=== PATIENT | female | born 1940 | race Caucasian/White ===

== ENCOUNTER 2016-12-29 16:35 | Inpatient (IN) ==
[2016-12-29] MEDS ORDERED: cloNIDine 0.1 MG TABLET PO STA ×2 (17:09→18:44)
[2016-12-29 17:23] LABS: Basophils # 0.1 10*3/uL (0.0-0.2); Basophils % 0.5 % (0.0-0.8); Eosinophils # 1.2 10*3/uL (0.0-0.87); Eosinophils % 9.6 % (0.00-10.9); Hemoglobin 10.3 GM/DL (12.0-16.0); Immature Granulocytes % 0.4 %; Immature Granulocytes Absolute 0.05 #; Lymphocytes # 1.9 10*3/uL (1.4-4.0); Lymphocytes % 14.7 % (21.3-54.2); Mean Corpuscular HGB Conc 32.2 GM/DL (32-36); Mean Corpuscular Hemoglobin 28 PG (27-34); Mean Corpuscular Volume 87.9 FL (87-102); Monocytes % 7.3 % (1.7-12.7); Neutrophils # 8.7 10*3/uL (1.4-7.4); Neutrophils % 67.5 % (38.7-73.9); Platelet Count 246 T/CUMM (130-400); Red Blood Count 3.64 MC/CUMM (3.8-5.5); Red Cell Distribution Width 16.1 % (9.3-17.3); White Blood Count 12.9 T/CUMM (4-12)
--- NOTE | 2016-12-29 17:24 | Emergency Department Note ---
IYaquelin Brittany, am scribing for, and in the presence of, Kristy Mclaughlin DO 17: 19. IArnoldo Debra, DO, personally performed the services described in this documentation, ascribed by Radha Jamison in my presence, and it is both accurate and complete 723 . Arrival - Arrival Chief Complaint: Syncope Stated Complaint: Syncope ED Nursing Triage Note: Pt c/o Syncope today while inside this afternoon, broke out into a sweat, dizziness, and fall. Pt has abrasions to her right fingers. Pt had diarrhea last night. Mode of Arrival: Stretcher Limitations: No Limitations Source: Patient Time Seen by Provider: 12/29/16 16:55 - History of Present Illness HPI Narrative: This is a 76 y/o white female,who presents to the ED by EMS S/P fall which happened this afternoon. She complains of back pain but notes this is chronic and nothing new. She reports she is did not "pass all the way out". She became dizzy and things started to became black around her. She reports she knew she was falling. She reports she did hit her head but has no GUTIÉRREZ. She reports she took her BP medications this morning. She reports her PCP is Dr. Alexander PABON. Pt has no other complaints/pain in the ED at this time. Pt has a PMHx of HTN, GERD , degenerative disk disease. Pt has had cardiac cath, abdominal surgery, cholecystectomy, EGD, neurologica surgery, hysterectomy, and genitourinary surgery. Pt has a family medical Hx of HTN and heart disease. Onset (ago): hour(s) (Happened this afternoon) Consistency: constant Severity: moderate Allergies/Adverse Reactions: Allergies Allergy/AdvReac Type Severity Reaction Status Date / Time amlodipine [From Norvasc] Allergy ITCHING Verified 02/04/15 11:38 hydrochlorothiazide Allergy ITCHING Verified 02/04/15 11:38 azithromycin AdvReac Difficulty Verified 02/04/15 11:38 [From Zithromax Z-Dilan] Breathing chlorpromazine AdvReac Anxiety Verified 02/04/15 11:38 [From Thorazine] codeine AdvReac Gastrointestinal Verified 02/04/15 11:38 Upset doxazosin [From Cardura] AdvReac Palpitation Verified 06/30/15 12:42 s ketorolac [From Toradol] AdvReac Anxiety Verified 02/04/15 11:38 Penicillins AdvReac Difficulty Verified 02/04/15 11:38 Breathing pregabalin [From Lyrica] AdvReac Unknown/Unable Verified 02/04/15 11:38 to obtain promethazine [From Phenergan] AdvReac Anxiety Verified 02/04/15 11:38 Sulfa (Sulfonamide AdvReac Difficulty Verified 02/04/15 11:38 Antibiotics) Breathing Home Medications: Home Medications Medication Instructions Recorded Confirmed Type Ergocalciferol (Vitamin D2) 50,000 unit PO Q7D 10/24/16 10/24/16 History [Vitamin D2] Labetalol Tab [Trandate Tab] 600 mg PO TID PRN 10/24/16 10/24/16 History Morphine ER Tab [Ms Contin] 30 mg PO TID 10/24/16 10/24/16 History Oxycodone HCl/Acetaminophen 1 tablet PO QID 10/24/16 10/24/16 History [Oxycodone-Acetaminophen 10-325] Potassium Chloride Cap/Tab [K Dur] 20 meq PO QPM 10/24/16 10/24/16 History Tramadol HCl [Tramadol Tab] 50 mg PO QID 10/24/16 10/24/16 History Valsartan [Diovan] 320 mg PO QAM 10/24/16 10/24/16 History Acetaminophen Tab [Tylenol Tab] 650 mg PO Q6H PRN #0 tablet 10/27/16 Rx Aspirin EC Tab 81 mg PO DAILY tablet 10/27/16 Rx Docusate Sodium Cap [Colace Cap] 100 mg PO BID capsule 10/27/16 Rx Levothyroxine Tab [Synthroid Tab] 25 mcg PO DAILY@0700 #30 tablet 10/27/16 Rx Nitroglycerin Sl Tab [Nitrostat] 0.4 mg SL Q5M PRN #10 tablet 10/27/16 Rx Ticagrelor [Brilinta] 90 mg PO BID #60 tablet 10/27/16 Rx Review of System - Review of System 12 point system: reviewed and no additional remarkable complaints except as stated - Review of System Review of Systems: Fall Cardiovascular: Absent: syncope (Near syncopal episode) Musculoskeletal: Present: back pain (Appears to be chronic ) Neurological: Present: vertigo (Dizziness). Absent: headache (Hit her head but has no GUTIÉRREZ, per pt) Medical,Surgical,& Family Hx - Medical History Cardio: History of: Hypertension Neurology: No history of: Seizures Gastrointestinal: History of: GERD Musculoskeletal: History of: Degenerative Disk Disease (Severe) - Surgical History Cardiac Surgeries: Sugical HX of: Cardiac Catheterization (Normal coronaries in 2004) Neurologic Surgeries: Surgical HX of: Neurologic Surgery (Cervical laminectomies 2. Lumbar laminectomy) Abdominal Surgeries: Surgical HX of: Abdominal Surgery (Status post partial gastrectomy in 1974), Cholecystectomy, EGD (Multiple EGDs with balloon dilatation of esophageal stricture) Reproductive Surgeries: Surgical HX of;: Genitourinary Surgery (Bladder tack), Hysterectomy (Partial) - Family History Family History: Reports;: Family Heart Disease (Father), Family Hypertension ( Mother) - Social History Smoking Status: Never smoker Exam Vital Signs: Vital Signs Temperature 97.6 F 12/29/16 16:39 Pulse Rate 62 12/29/16 16:39 Respiratory Rate 16 12/29/16 16:39 Blood Pressure 217/104 12/29/16 16:39 O2 Sat by Pulse Oximetry 99 12/29/16 16:37 - General General appearance: alert, in no apparent distress - Head Head exam: Present: atraumatic, normocephalic, normal inspection - Eye Eye exam: Present: other (Mildly dilated pupils). Absent: normal appearance, conjunctival injection, nystagmus, miosis, mydriasis - ENT ENT exam: Present: normal exam, normal oropharynx, mucous membranes moist, TM's normal bilaterally, normal external ear exam - Neck Neck exam: Present: normal inspection, full ROM, trachea midline. Absent: tenderness, meningismus, lymphadenopathy, thyromegaly - Chest Chest inspection: Present: normal inspection, symmetric chest wall rise. Absent : tenderness, rash, abscess - Respiratory Respiratory exam: Present: normal lung sounds bilaterally. Absent: accessory muscle use, prolonged expiratory phase, rales, respiratory distress, rhonchi, stridor, wheezes - Cardiovascular Cardiovascular exam: Present: normal rhythm, normal heart sounds. Absent: regular rate, murmur, rubs, gallop, clicks - Abdominal Exam Abdominal exam: Present: soft, normal bowel sounds. Absent: distention, tenderness, guarding, rebound, rigidity - Rectal Exam Rectal exam: Present: deferred - Extremities Exam Extremities exam: Present: normal capillary refill, other (Laceration noted to the right second toe, and Abrasion to the 3rd and 4th left fingers). Absent: tenderness, pedal edema, calf tenderness - Back Exam Back exam: Present: normal inspection, full ROM. Absent: tenderness, muscle spasm, rashes - Neurological Exam Neurological exam: Present: alert, oriented X3, CN II-XII intact. Absent: motor sensory deficit - Psychiatric Psychiatric exam: Present: normal affect, normal mood. Absent: depressed, agitated, anxious, flat affect, manic - Skin Skin exam: Present: warm, dry, intact, normal color. Absent: rash, cyanosis, diaphoresis, erythema, pallor, mottled Course Course Narrative: spoke with DR Sierra who will admit pt for DR Munoz Results - Labs CBC & BMP: 12/29/16 17:09 12/29/16 17:09 - Diagnostic Findings Procedure: Chest x-ray: report reviewed by me (Mild CHF, not as severe as October. Underlying interstitial lung diease. ) Disposition Clinical Impression: Vasovagal syncope, Dehydration, Essential (primary) hypertension Case discussed with: patient, patient's family Disposition: Still a Patient Condition: Stable Instructions: Dehydration (ED) Time of Disposition: 18:45
[2016-12-29] MEDS ORDERED: KETOROLAC 30 MG/1 ML VIAL ONE (17:29)
[2016-12-29 17:35] LABS: INR 1.1; PT Patient Result 11.3 SECS; Partial Thromboplastin Time 29.7 SECS (0-40)
[2016-12-29] MEDS ORDERED: ONDANSETRON 4 MG/2 ML VIAL ONE (17:39)
[2016-12-29] MEDS ORDERED: HYDROmorphone 2 MG/1 ML VIAL ONE (17:40)
[2016-12-29 17:43] LABS: Alanine Aminotransferase 25 U/L (13-56); Albumin 4.1 G/DL (3.4-5.0); Alkaline Phosphatase 122 U/L (45-117); Aspartate Amino Transferase 27 U/L (0-37); Blood Urea Nitrogen 23 MG/DL (7-18); Calcium 8.4 MG/DL (8.5-10.1); Glucose 85 MG/DL (74-106); Osmolality,Calculated 285.1 MOS/KG (273-304); Potassium 3.8 MMOL/L (3.5-5.1); Sodium 142 MMOL/L (136-145); Total Protein 6.8 G/DL (6.4-8.3); Troponin I Only < 0.015 NG/ML (0.00-0.045)
--- NOTE | 2016-12-29 18:03 | XRay Report ---
XR chest 1V portable Indication: Shortness of breath. Chest one view: Comparison 10/24/2016. ACDF, cardiomegaly and normal mediastinal contour are stable. Significant coarsened interstitial markings of the lungs are noted throughout, although the overall severity has improved significantly from the previous exam. Lung volumes are low. Impression: Mild CHF, not as severe as Deanne. Underlying interstitial lung disease. PROCEDURE INTERPRETED AT [facility] DEPARTMENT OF RADIOLOGY Final Report Signed by: Van Chapa M.D.
[2016-12-29] MEDS ORDERED: cloNIDine 0.1 MG TABLET ONE (18:12)
[2016-12-29] MEDS: SODIUM CHLORIDE 0.9% 1,000 ML IV SCH (18:35)
[2016-12-29] MEDS ORDERED: HYDROmorphone 2 MG/1 ML VIAL IV STA (18:45)
[2016-12-29] MEDS ORDERED: ONDANSETRON 4 MG/2 ML VIAL IV STA (18:45)
--- NOTE | 2016-12-29 19:05 | CT Report ---
CT head/brain wo con Indication: Fall. CT BRAIN WITHOUT CONTRAST DLP: 1104 mGy*cm. One or more of the following dose reduction techniques was used: Automated exposure control, adjustment of the mA and/or kV according the patient size, or use of iterative reconstruction techniques. Comparison: 07/15/2010. Date of admission: 12/29/2016. Technique: Axial noncontrast CT images of the brain were obtained. Findings: No acute hemorrhage, mass or mass effect. There is minimal generalized atrophy for patient age. Perez-white junction is maintained throughout. Chronic lacunar infarcts of the right internal capsule and left parietal steel radiata noted. No bone lesions. No fractures. Visualized sinuses and mastoid air cells are clear. Impression: No acute intracranial pathology. Mild atrophy. Old lacunar infarcts of the right basal ganglia and left steel radiata. PROCEDURE INTERPRETED AT [facility] DEPARTMENT OF RADIOLOGY Final Report Signed by: Van Chapa M.D.
[2016-12-30] MEDS ORDERED: oxyCODONE/ACETAMINOPHEN 5-325 MG TABLET PO ONE ×2 (04:26→08:24)
[2016-12-30] MEDS: SODIUM CHLORIDE 0.9% 1,000 ML IV SCH ×2 (04:41→14:45)
[2016-12-30 05:02] LABS: Basophils # 0.1 10*3/uL (0.0-0.2); Basophils % 0.6 % (0.0-0.8); Eosinophils # 1.1 10*3/uL (0.0-0.87); Eosinophils % 13.2 % (0.00-10.9); Hematocrit 30.2 VOL% (35.7-47.0); Hemoglobin 9.6 GM/DL (12.0-16.0); Immature Granulocytes % 0.2 %; Immature Granulocytes Absolute 0.02 #; Lymphocytes # 2.1 10*3/uL (1.4-4.0); Lymphocytes % 25.3 % (21.3-54.2); Mean Corpuscular HGB Conc 31.8 GM/DL (32-36); Mean Corpuscular Hemoglobin 28 PG (27-34); Mean Corpuscular Volume 88.3 FL (87-102); Monocytes # 0.9 10*3/uL (0.11-0.8); Monocytes % 10.6 % (1.7-12.7); Neutrophils # 4.2 10*3/uL (1.4-7.4); Neutrophils % 50.1 % (38.7-73.9); Platelet Count 242 T/CUMM (130-400); Red Blood Count 3.42 MC/CUMM (3.8-5.5); Red Cell Distribution Width 15.9 % (9.3-17.3); White Blood Count 8.3 T/CUMM (4-12)
[2016-12-30 05:27] LABS: Eosinophils 10 % (0-10); Hypochromasia 1+; Lymphocytes 30 % (20-55); Microcytosis 1+; Segmented Neutrophils 58 % (50-85); Total Cells Counted 100
[2016-12-30 05:28] LABS: Anisocytosis 1+; Platelet Estimate Normal
[2016-12-30 05:39] LABS: Albumin 3.4 G/DL (3.4-5.0); Calcium 8.3 MG/DL (8.5-10.1); Osmolality,Calculated 285.8 MOS/KG (273-304); Total Protein 5.8 G/DL (6.4-8.3)
[2016-12-30 05:45] LABS: Troponin I Only 0.024 NG/ML (0.00-0.045)
--- NOTE | 2016-12-30 07:44 | EKG Report ---
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
[2016-12-30] MEDS ORDERED: LABETALOL 200 MG TABLET PO PRN (08:17)
--- NOTE | 2016-12-30 08:41 | EKG Report ---
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
[2016-12-30] MEDS: VALSARTAN 160 MG TABLET PO SCH (08:59)
[2016-12-30] MEDS ORDERED: MECLIZINE 12.5 MG TABLET PO PRN (09:17)
[2016-12-30] MEDS ORDERED: VALSARTAN 320 MG PO SCH (09:30)
[2016-12-30] MEDS: ATORVASTATIN 20 MG TABLET PO SCH (10:14)
[2016-12-30] MEDS ORDERED: POTASSIUM CHLORIDE 10 MEQ TABLET PO ONE (10:18)
[2016-12-30] MEDS: FUROSEMIDE 40 MG TABLET PO SCH (10:31)
[2016-12-30] MEDS: CLOPIDOGREL 75 MG TABLET PO SCH (10:36)
[2016-12-30] MEDS: LABETALOL 300 MG TABLET PO PRN (16:54)
[2016-12-30] MEDS ORDERED: cloNIDine 0.1 MG TABLET PO PRN (17:53)
[2016-12-30] MEDS: MORPHINE ER 30 MG TABLET PO SCH (18:41)
[2016-12-30] MEDS: oxyCODONE/ACETAMINOPHEN 5-325 MG TABLET PO PRN (18:41)
[2016-12-30] MEDS ORDERED: POTASSIUM CHLORIDE 20 MEQ TABLET PO SCH (19:00)
[2016-12-30] MEDS: FERROUS SULFATE 325 MG TABLET PO SCH (20:46)
[2016-12-30] MEDS: POTASSIUM CHLORIDE 20 MEQ TABLET PO SCH (20:46)
--- NOTE | 2016-12-30 21:14 | Family Practice History&Phys ---
Assessment and Plan (1) Dehydration Status: Acute Assessment and plan: IVfluids Current Visit: Yes (2) Vasovagal syncope Status: Acute Assessment and plan: orthostatics in AM Current Visit: Yes (3) Chronic back pain Status: Chronic Current Visit: Yes Qualifiers: Back pain location: low back pain History of Present Illness Chief complaint: fall, History of present illness: Ms. Curran is a 76 year old female This is a 76 y/o white female,who cameto the ED by EMS S/P fall which happened earlier today. apparently did not "pass out all the way out". She became dizzy and things started to became black around her and felt herself falling. states she had diarreah fridiay but none since.. She reports she took her BP medications this morning. PCP is Dr. Alexander PABON. Pt has no GUTIÉRREZ or other complaints at present. Pt has a PMHx of HTN, GERD, degenerative disk disease. Pt has had cardiac cath, abdominal surgery, cholecystectomy, EGD, neurologica surgery, hysterectomy, and genitourinary surgery. Pt has a family medical Hx of HTN and heart disease. Home Medications Medication Instructions Recorded Confirmed Type Ergocalciferol (Vitamin D2) 50,000 unit PO Q7D 10/24/16 12/29/16 History [Vitamin D2] Labetalol Tab [Trandate Tab] 600 mg PO TID PRN 10/24/16 12/29/16 History Potassium Chloride Cap/Tab [K Dur] 20 meq PO QPM 10/24/16 12/29/16 History Valsartan [Diovan] 320 mg PO QAM 10/24/16 12/29/16 History Acetaminophen Tab [Tylenol Tab] 650 mg PO Q6H PRN #0 tablet 10/27/16 12/29/16 Rx Aspirin EC Tab 81 mg PO DAILY tablet 10/27/16 12/29/16 Rx Docusate Sodium Cap [Colace Cap] 100 mg PO BID capsule 10/27/16 12/29/16 Rx Levothyroxine Tab [Synthroid Tab] 25 mcg PO DAILY@0700 #30 tablet 10/27/1612/29 Rx Atorvastatin [Lipitor] 20 mg PO DAILY 12/29/16 12/29/16 History Biotin 5 mg PO DAILY 12/29/16 12/29/16 History Clopidogrel [Plavix] 75 mg PO DAILY 12/29/16 12/29/16 History Cyanocobalamin Tab [Vitamin B12 100 mcg PO DAILY 12/29/16 12/29/16 History Tab] Ferrous Sulfate Tab [Feosol 325 mg PO BID 12/29/16 12/29/16 History Original Tab] Furosemide Tab [Lasix Tab] 40 mg PO DAILY 12/29/16 12/29/16 History Loperamide HCl [Loperamide] 2 mg PO Q6HR PRN 12/29/16 12/29/16 History Meclizine HCl 12.5 mg PO Q4HR PRN 12/29/16 12/29/16 History Vitamin E 400 unit PO DAILY 12/29/16 12/29/16 History Allergies Allergy/AdvReac Type Severity Reaction Status Date / Time amlodipine [From Norvasc] Allergy ITCHING Verified 02/04/15 11:38 hydrochlorothiazide Allergy ITCHING Verified 02/04/15 11:38 azithromycin AdvReac Difficulty Verified 02/04/15 11:38 [From Zithromax Z-Dilan] Breathing chlorpromazine AdvReac Anxiety Verified 02/04/15 11:38 [From Thorazine] codeine AdvReac Gastrointestinal Verified 02/04/15 11:38 Upset doxazosin [From Cardura] AdvReac Palpitation Verified 06/30/15 12:42 s ketorolac [From Toradol] AdvReac Anxiety Verified 02/04/15 11:38 Penicillins AdvReac Difficulty Verified 02/04/15 11:38 Breathing pregabalin [From Lyrica] AdvReac Unknown/Unable Verified 02/04/15 11:38 to obtain promethazine [From Phenergan] AdvReac Anxiety Verified 02/04/15 11:38 Sulfa (Sulfonamide AdvReac Difficulty Verified 02/04/15 11:38 Antibiotics) Breathing 12 point system: reviewed and no additional remarkable complaints except as stated (that mentioned in h and p) Medical,Surgical,& Family Hx - Medical History Cardio: History of: Hypertension Neurology: No history of: Seizures Gastrointestinal: History of: GERD Musculoskeletal: History of: Degenerative Disk Disease (Severe) - Surgical History Cardiac Surgeries: Sugical HX of: Cardiac Catheterization (Normal coronaries in 2004) Neurologic Surgeries: Surgical HX of: Neurologic Surgery (Cervical laminectomies 2. Lumbar laminectomy) Abdominal Surgeries: Surgical HX of: Abdominal Surgery (Status post partial gastrectomy in 1974), Cholecystectomy, EGD (Multiple EGDs with balloon dilatation of esophageal stricture) Reproductive Surgeries: Surgical HX of;: Genitourinary Surgery (Bladder tack), Hysterectomy (Partial) - Family History Family History: Reports;: Family Heart Disease (Father), Family Hypertension ( Mother) - Social History Smoking Status: Never smoker Frequency of Alcohol Use: None Type of Drug Use: None Exam - Constitutional Vitals: Period Temp Pulse Resp BP Sys/Espinal Pulse Ox Last 24 Hr 96.5 F-98 F 50-62 16-22 165-214/72-95 92-98 General appearance: normal weight - Head Head exam: Present: normal inspection, atraumatic - Eye Eye exam: Present: EOMI Pupils: Present: DIANNA - ENT ENT exam: Present: normal exam - Neck Neck exam: Present: normal inspection - Respiratory Respiratory exam: Present: clear to auscultation bilaterally - Cardiovascular Cardiovascular exam: Absent: bradycardia - GI/Abdominal GI/Abdominal exam: Absent: ascites, mass - Extremities Exam Extremities exam: Present: normal inspection - Back Exam Back exam: Present: normal inspection (c/os of back pain,chronic) - Neurological Exam Neurological exam: Present: alert, oriented X3, CN II-XII intact - Psychiatric Psychiatric exam: Present: normal affect - Skin Skin exam: Present: warm, dry Results - Labs CBC & BMP: 12/30/16 04:12 12/30/16 04:12
[2016-12-30] MEDS: METOPROLOL TARTRATE 5 MG/5 ML VIAL IV SCH (23:33)
[2016-12-31] MEDS: oxyCODONE/ACETAMINOPHEN 5-325 MG TABLET PO PRN ×4 (00:06→21:25)
[2016-12-31] MEDS: SODIUM CHLORIDE 0.9% 1,000 ML IV SCH ×3 (00:32→21:39)
[2016-12-31] MEDS: MORPHINE ER 30 MG TABLET PO SCH ×2 (06:14→18:08)
[2016-12-31] MEDS: METOPROLOL TARTRATE 5 MG/5 ML VIAL IV SCH ×2 (06:14→11:52)
[2016-12-31] MEDS: LEVOTHYROXINE 25 MCG TABLET PO SCH (06:14)
[2016-12-31] MEDS: ASPIRIN EC 81 MG TABLET PO SCH (08:58)
[2016-12-31] MEDS: VALSARTAN 160 MG TABLET PO SCH (08:59)
[2016-12-31] MEDS: CLOPIDOGREL 75 MG TABLET PO SCH (08:59)
[2016-12-31] MEDS: FERROUS SULFATE 325 MG TABLET PO SCH ×2 (08:59→21:12)
[2016-12-31] MEDS: ATORVASTATIN 20 MG TABLET PO SCH (08:59)
--- NOTE | 2016-12-31 09:03 | Internal Med Progress Note ---
Assessment and Plan (1) Near syncope Status: Acute Assessment and plan: 76-year-old female admitted to acute care * Near syncopal episode. Probably vasovagal or orthostatic. She is complaining of some palpitations and irregular heart rate prior to the episode. Patient had undergone cardiac catheterization in stent in RCA about 2 months ago. Will consult cardiology to evaluate. * Mild dehydration. Patient is better after receiving fluid * Back pain. Will check x-ray of lumbosacral and thoracic spine along with right hip. * Hypertension. Her blood pressure has always been difficult to control at fluctuates. * Discussed with patient and her family Current Visit: Yes (2) Essential (primary) hypertension Status: Chronic Current Visit: Yes (3) Palpitations Status: Acute Current Visit: Yes (4) Congestive heart failure Status: Chronic Current Visit: No Qualifiers: Congestive heart failure type: diastolic Congestive heart failure chronicity: acute on chronic Qualified Code(s): I50.33 - Acute on chronic diastolic (congestive) heart failure (5) Uncontrolled hypertension Status: Chronic Current Visit: No Internal Medicine - PN: Subj Interval history: Patient seen and examined. Chart reviewed. Discussed with patient and her family. She is feeling okay this morning. She is hurting in her mid back and right hip. She has felt irregular pulse for a few days before coming in to the hospital. He was getting dizzy and lightheaded at times. Exam (Progress Note) - Constitutional Vitals: Period Temp Pulse Resp BP Sys/Espinal Pulse Ox Last 24 Hr 96.2 F-98.4 F 52-65 16-22 162-217/72-89 94-99 Exam: Examination: GENERAL: NAD. HEENT: PERRLA. EOMI. NECK: Neck is supple. CVS: Regular rate and rhythm. S1 and S2 are normal. RESPIRATORY: Lungs are clear. No rales or rhonchi. ABDOMEN: Soft and nontender. Bowel sounds are present. No hepatosplenomegaly. EXT: No edema. Peripheral pulses are present. 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 Cranial nerves II through XII are grossly intact. Motor strength is 5 over 5 both upper and lower extremities. SKIN: Warm and dry. Bruise present in mid lower back MSK: No obvious deformity. Results - Labs CBC & BMP: 12/30/16 04:12 12/30/16 04:12 Lab Results: I have reviewed the past 24 hour labs Specialty Discharge - Follow Up or Referrals
[2016-12-31] MEDS: LABETALOL 300 MG TABLET PO PRN (09:16)
[2016-12-31] MEDS: POTASSIUM CHLORIDE 20 MEQ TABLET PO SCH (09:17)
[2016-12-31] MEDS: FUROSEMIDE 40 MG TABLET PO SCH (09:22)
--- NOTE | 2016-12-31 13:42 | XRay Report ---
History: Back pain after fall. Hip pain after fall Date: 12/31/2016 Study: Thoracic spine AP and lateral 2 views. Lumbar spine complete 5 views. Right hip 2 views Comparison exam: Pelvis x-ray December 21, 2011. PA and lateral chest x-ray September 15, 2013. CT chest October 24, 2016 Lumbar spine 5 views complete: There is severe dextroscoliosis of the spine centered at the L1-L2 level. There is grade 2 anterolisthesis of L2 with respect to L1, similar to the CT chest from October 24, 2006. There is mild grade 1 anterolisthesis of L3 with respect to L2. There is prominent irregular disc narrowing and endplate sclerosis at T12-L1 and L1-L2 similar to the previous chest CT. There is prominent degenerative disc narrowing at L2-L3. Pedicular screws and rods stabilize the pedicles at L4-L5. There has been previous laminectomy from L1-L2 through L5. There is prominent facet hypertrophy. Impression: Grade 2 spondylolisthesis at L1-L2 as on the comparison chest CT from October 24, 2016 Prominent irregular disc narrowing with endplate sclerosis at T12-L1 and L1-L2 which could be related to previous changes of chronic discitis. This appearance is similar to the CT chest from October 24, 2016. Previous extensive lumbar surgery as detailed above. Scoliosis. Thoracic spine AP and lateral 2 views: Aside from the changes at the thoracolumbar junction detailed above in the lumbar spine x-ray, there is no thoracic malalignment. There is no acute thoracic fracture. There is moderate disc narrowing and some moderate endplate sclerosis at T12-L1. There is mild scattered thoracic spondylosis. Surgical hardware from previous anterior cervical fusion overlies the cervicothoracic junction. Impression: No acute abnormality of the thoracic spine Right hip 2 views: The right hip is well conjugated. There is no fracture, dislocation, or focal destructive osseous abnormality. Impression: No right hip abnormality PROCEDURE INTERPRETED AT [facility] DEPARTMENT OF RADIOLOGY Final Report Signed by: Dr. Lucero Rose
[2016-12-31] MEDS: hydrALAZINE 25 MG TABLET PO SCH ×2 (14:57→21:12)
--- NOTE | 2016-12-31 15:15 | Cardiology Consult Note ---
Kasi Smith April RN, am scribing for, and in the presence of, Sosa Marcano DO 15 :13. Assessment and Plan (1) CAD (coronary artery disease) Status: Chronic Current Visit: Yes Qualifiers: Coronary Disease-Associated Artery/Lesion type: [place] artery [place] vs. transplanted heart: [place] heart (2) Near syncope Status: Acute Assessment and plan: THis may very well be true syncope. Current Visit: Yes (3) Chronic back pain Status: Chronic Current Visit: Yes Qualifiers: Back pain location: low back pain (4) Essential (primary) hypertension Status: Chronic Current Visit: Yes History of Present Illness - Data of Consult Patient: known to practice within the last 3 years Consult date: 12/31/16 Requesting Physician: Steve Munoz Primary care physician: Steve Munoz - Consult Narrative Reason for consult: Near-syncope History of present illness: Radiologic Technology Instructor: Dr. Cruz PCP: Dr. Munoz Ms. Curran is a 76 year old female who is routinely followed by Dr. Cruz with a history of CAD, hypertension, back pain, and GERD. She underwent heart catheterization 10/26/2016 with successful PCI to the mid right coronary artery with a 4.0 x 12 mm Synergy drug-eluting stent. She was discharged home on baby aspirin and Brilinta 90 mg twice daily. When she saw Dr. Cruz in the clinic on 11/12/2016 it was found that she had only taken her Brilinta for 4 days and stopped it because it made her feel weak and her heart was pounding. He placed on Plavix 75 mg daily and reeducate her on the risk for stent thrombosis with discontinuation of dual antiplatelet therapy. Echo done in the hospitalization with ejection fraction of 55-60% with grade 2 diastolic dysfunction. She reports she is a lifetime non-smoker. She reports she has been having episodes of dizziness and feeling as if she would pass out for a week. On Saturday she says she felt bad all day and began to experience dizziness and "felt funny". She reports everything went black but she did not pass out, she was aware of her surroundings. Afterwards she reports feeling weak and "jumpy". She reports this episode was worse than any she had over the last week. She did hit her head, and reports it hurt initially but she is no longer having pain. She does continue to have some neck pain. CT of the head was done showed no acute intracranial pathology. Hip , thoracic spine, lumbar spine x-rays have been done this morning, reports are pending. She denies having any chest pain or shortness of breath with this episode. She reports she has palpitations chronically, but they have been worse over the last 2 weeks. She does not move she had any palpitations at the time of this episode Saturday. Currently she is seen resting in bed in no acute distress. She denies any pain except for her chronic back pain and some neck pain. Denies shortness of breath , palpitations, dizziness presently. She denies any episodes of syncope or near syncope since the episode mentioned above that occurred Saturday. EKG on admission showed sinus rhythm heart rate of 58. Reviewing the web production artist strips it appears she did have some pauses yesterday afternoon and last night. Her blood pressures have been elevated since admission. She has been getting Lopressor 5 mg IV, it is scheduled for every 6 hours. We will stop this and treat her blood pressure with other medications. Blood pressure is slightly improved this morning 164/73. The patient had PCI by Dr. Cruz and she stopped her Brilinta as outlined above she is now back on Plavix and states that she has not been missing it. She states she has had several episodes of "fluttering" in her horn of the last several months and the stent did not change that. She had a fall and injury to her head she states that she did not have syncope if she was out it was only for a second. It sounds to me as though the patient had syncope. She has been on both labetalol and metoprolol with pauses up to 3.6 seconds. They have now been discontinued and we are monitoring her heart rhythm. She continues to have a first-degree AV block her rate is well controlled. I discussed with her about changing of her blood pressure medicines and amlodipine causes rash. I agree with hydralazine. CC: Steve Munoz MD - Home Medications and Allergies Home Medications: Home Medications Medication Instructions Recorded Confirmed Type Ergocalciferol (Vitamin D2) 50,000 unit PO Q7D 10/24/16 12/29/16 History [Vitamin D2] Labetalol Tab [Trandate Tab] 600 mg PO TID PRN 10/24/16 12/29/16 History Potassium Chloride Cap/Tab [K Dur] 20 meq PO QPM 10/24/16 12/29/16 History Valsartan [Diovan] 320 mg PO QAM 10/24/16 12/29/16 History Acetaminophen Tab [Tylenol Tab] 650 mg PO Q6H PRN #0 tablet 10/27/16 12/29/16 Rx Aspirin EC Tab 81 mg PO DAILY tablet 10/27/16 12/29/16 Rx Docusate Sodium Cap [Colace Cap] 100 mg PO BID capsule 10/27/16 12/29/16 Rx Levothyroxine Tab [Synthroid Tab] 25 mcg PO DAILY@0700 #30 tablet 10/27/1612/29 Rx Atorvastatin [Lipitor] 20 mg PO DAILY 12/29/16 12/29/16 History Biotin 5 mg PO DAILY 12/29/16 12/29/16 History Clopidogrel [Plavix] 75 mg PO DAILY 12/29/16 12/29/16 History Cyanocobalamin Tab [Vitamin B12 100 mcg PO DAILY 12/29/16 12/29/16 History Tab] Ferrous Sulfate Tab [Feosol 325 mg PO BID 12/29/16 12/29/16 History Original Tab] Furosemide Tab [Lasix Tab] 40 mg PO DAILY 12/29/16 12/29/16 History Loperamide HCl [Loperamide] 2 mg PO Q6HR PRN 12/29/16 12/29/16 History Meclizine HCl 12.5 mg PO Q4HR PRN 12/29/16 12/29/16 History Vitamin E 400 unit PO DAILY 12/29/16 12/29/16 History Allergies/Adverse Reactions: Allergies Allergy/AdvReac Type Severity Reaction Status Date / Time amlodipine [From Norvasc] Allergy ITCHING Verified 02/04/15 11:38 hydrochlorothiazide Allergy ITCHING Verified 02/04/15 11:38 azithromycin AdvReac Difficulty Verified 02/04/15 11:38 [From Zithromax Z-Dilan] Breathing chlorpromazine AdvReac Anxiety Verified 02/04/15 11:38 [From Thorazine] codeine AdvReac Gastrointestinal Verified 02/04/15 11:38 Upset doxazosin [From Cardura] AdvReac Palpitation Verified 06/30/15 12:42 s ketorolac [From Toradol] AdvReac Anxiety Verified 02/04/15 11:38 Penicillins AdvReac Difficulty Verified 02/04/15 11:38 Breathing pregabalin [From Lyrica] AdvReac Unknown/Unable Verified 02/04/15 11:38 to obtain promethazine [From Phenergan] AdvReac Anxiety Verified 02/04/15 11:38 Sulfa (Sulfonamide AdvReac Difficulty Verified 02/04/15 11:38 Antibiotics) Breathing - Constitutional Constitutional: Present: as per HPI - EENT Eyes: Present: requires corrective lense. Absent: blurry vision Ears: Present: decreased hearing, tinnitus. Absent: ear pain Nose, mouth and throat: Present: headache(s), neck pain. Absent: epistaxis, sore throat - Cardiovascular Cardiovascular: Present: lightheadedness, orthopnea, palpitations, other ( syncope). Absent: chest pain at rest, chest pain with activity, diaphoresis, dyspnea, dyspnea on exertion, edema, radiating jaw, neck or arm pain - Respiratory Respiratory: Absent: cough, dyspnea, hemoptysis, dyspnea on exertion, wheezing - Gastrointestinal Gastrointestinal: Present: constipation, diarrhea. Absent: abdominal pain, hematemesis, hematochezia, melena, nausea, vomiting - Genitourinary Genitourinary: Absent: dysuria, hematuria - Musculoskeletal Musculoskeletal: Present: back pain, limited range of motion, muscle weakness - Neurological Neurological: Present: abnormal gait, dizziness, frequent falls, headache(s), other (Near-syncope). Absent: confusion, syncope - Psychiatric Psychiatric: Absent: confusion, depression - Endocrine Endocrine: Present: fatigue - Hematologic/Lymphatic Hematologic/Lymphatic: Present: easy bleeding, easy bruising Medical,Surgical,& Family Hx - Medical History Cardio: History of: CAD (PCI in 10/2016 to RCA with SAPNA), Hypertension Gastrointestinal: History of: GERD Musculoskeletal: History of: Degenerative Disk Disease (Severe) - Surgical History Cardiac Surgeries: Sugical HX of: Cardiac Catheterization (Stent to mid RCA 10/26) Neurologic Surgeries: Surgical HX of: Neurologic Surgery (Cervical laminectomies 2. Lumbar laminectomy) Abdominal Surgeries: Surgical HX of: Abdominal Surgery (Status post partial gastrectomy in 1974), Cholecystectomy, EGD (Multiple EGDs with balloon dilatation of esophageal stricture) Reproductive Surgeries: Surgical HX of;: Genitourinary Surgery (Bladder tack), Hysterectomy (Partial) - Family History Family History: Reports;: Family Heart Disease (Father), Family Hypertension ( Mother) - Social History Smoking Status: Never smoker Have you smoked in the last 12 months: No Frequency of Alcohol Use: None Type of Drug Use: None Marital Status: Lives With:: Spouse Functional capacity: uses cane/walker Physical Examination Vital Signs Temp Pulse Resp BP Pulse Ox 97.6 F 62 16 217/104 99 12/29/16 16:37 12/29/16 16:37 12/29/16 16:37 12/29/16 16:37 12/29/16 16:37 General: Present: Appears Well, No Apparent Distress HEENT: Present: PERRL, Mucus Membranes Moist Neck: Present: Supple Neck, Midline Trachea, No Bruit Cardiac: Present: Reg Rate and Rhythm, Bradycardia Lungs: Present: Normal Breath Sounds, No Wheeze, Rales, Rhonchi Neuro: Absent: Resting Tremor, Essential Tremor Abdomen: Present: Soft, Active Bowel Sounds, Non-Tender. Absent: Distended Skin: Absent: Rash, Suspicious Lesions Musculoskeletal: Present: Decreased Range of Motion, Pain in Joint Gait: Present: Poor Gait Extremities: Present: No Edema, Normal Upper Extr. Pulses, Normal Lower Extr. Pulses. Absent: Normal Gait Result/EKG - Labs CBC & BMP: 12/30/16 04:12 12/30/16 04:12 Lab Results: I have reviewed the past 24 hour labs - Diagnostic Findings Procedure: Chest x-ray: report reviewed by me, CT: report reviewed by me (Head) - EKG EKG results: interpreted by me EKG shows: sinus rhythm (first degree AV block. Tele with some pauses up to 3.6 seconds.) Specialty Discharge - Follow Up or Referrals IKrys Shea, , personally performed the services described in this documentation, ascribed by Deanne Villaseñor RN in my presence, and it is both accurate and complete 515 .
[2017-01-01] MEDS: ACETAMINOPHEN 325 MG TABLET PO PRN (00:37)
[2017-01-01] MEDS: hydrALAZINE 20 MG/1 ML VIAL IV PRN ×2 (00:37→05:45)
[2017-01-01] MEDS: oxyCODONE/ACETAMINOPHEN 5-325 MG TABLET PO PRN ×3 (03:26→20:12)
[2017-01-01] MEDS ORDERED: VALSARTAN 160 MG TABLET PO ONE (03:32)
[2017-01-01] MEDS: VALSARTAN 160 MG TABLET PO SCH (03:43)
--- NOTE | 2017-01-01 04:21 | EKG Report ---
Stationary ECG Study [facility] Test Date: 12/31/2016 3:20:04 PM Pat Name: JESS GUERRIER Department: Room: 284 Gender: F Payment Specialist: : 1940 Requested by: Tomás Duenas Order Number: [id number] Jacky MD: GARRICK ALVARENGA Intervals [place] Rate: 58 P: 51 NE: 221 QRS: 70 QRSD: 90 T: 72 QT: 497 QTc: 494 Interpretive Statements SINUS BRADYCARDIA WITH FIRST DEGREE AV BLOCK Electronically Signed On 01-02-17 16:06:15 CDT by GARRICK ALVARENGA [email or web address]
[2017-01-01] MEDS: MORPHINE ER 30 MG TABLET PO SCH ×2 (05:39→18:03)
[2017-01-01 05:47] LABS: Basophils # 0.1 10*3/uL (0.0-0.2); Basophils % 0.7 % (0.0-0.8); Eosinophils # 0.8 10*3/uL (0.0-0.87); Eosinophils % 9.4 % (0.00-10.9); Hematocrit 32.2 VOL% (35.7-47.0); Hemoglobin 10.4 GM/DL (12.0-16.0); Immature Granulocytes % 0.3 %; Immature Granulocytes Absolute 0.03 #; Lymphocytes # 2.6 10*3/uL (1.4-4.0); Lymphocytes % 28.9 % (21.3-54.2); Mean Corpuscular HGB Conc 32.3 GM/DL (32-36); Mean Corpuscular Hemoglobin 28 PG (27-34); Mean Corpuscular Volume 86.1 FL (87-102); Monocytes % 11.7 % (1.7-12.7); Neutrophils # 4.3 10*3/uL (1.4-7.4); Platelet Count 287 T/CUMM (130-400); Red Blood Count 3.74 MC/CUMM (3.8-5.5); Red Cell Distribution Width 15.9 % (9.3-17.3); White Blood Count 8.8 T/CUMM (4-12)
[2017-01-01] MEDS: SODIUM CHLORIDE 0.9% 1,000 ML IV SCH ×2 (05:55→18:10)
[2017-01-01 06:14] LABS: Calcium 8.9 MG/DL (8.5-10.1); Magnesium 1.9 MG/DL (1.8-2.4); Osmolality,Calculated 286.8 MOS/KG (273-304); Potassium 3.5 MMOL/L (3.5-5.1)
[2017-01-01] MEDS: LEVOTHYROXINE 25 MCG TABLET PO SCH (06:52)
[2017-01-01] MEDS: ONDANSETRON 4 MG/2 ML VIAL IV PRN ×2 (07:44→12:53)
--- NOTE | 2017-01-01 08:05 | EKG Report ---
Stationary ECG Study [facility] Test Date: 01/01/2017 7:41:42 AM Pat Name: JESS GUERRIER Department: Room: 284 Gender: F Fleet Salesperson: TYLER : 1940 Requested by: Tomás Duenas Order Number: [id number] Jacky MD: GARRICK ALVARENGA Intervals [place] Rate: 68 P: 75 OR: 211 QRS: 40 QRSD: 89 T: 52 QT: 402 QTc: 419 Interpretive Statements SINUS RHYTHM WITH PROLONGED OR INTERVAL Electronically Signed On 01-02-17 16:20:42 CDT by GARRICK ALVARENGA [email or web address]
--- NOTE | 2017-01-01 08:22 | Internal Med Progress Note ---
Assessment and Plan (1) Near syncope Status: Acute Assessment and plan: 76-year-old female admitted to acute care * Near syncopal episode. Patient had pauses yesterday on monitor. It could be combination of labetalol and metoprolol. Metoprolol was added in the emergency room. Both medications have been stopped. Will check TSH on the patient * Dehydration. Resolved * Back pain. No acute changes on the x-rays * Hypertension. Her blood pressure has always been difficult to control at fluctuates. * Discussed with patient and her family Current Visit: Yes (2) Essential (primary) hypertension Status: Chronic Current Visit: Yes (3) Palpitations Status: Acute Current Visit: Yes (4) Congestive heart failure Status: Chronic Current Visit: No Qualifiers: Congestive heart failure type: diastolic Congestive heart failure chronicity: acute on chronic Qualified Code(s): I50.33 - Acute on chronic diastolic (congestive) heart failure (5) Uncontrolled hypertension Status: Chronic Current Visit: No Internal Medicine - PN: Subj Interval history: Patient is complaining of headache this morning. She denies any chest pain or shortness of breath. Patient was noted to have pauses on EKG yesterday. Her labetalol and metoprolol has been stopped. Exam (Progress Note) - Constitutional Vitals: Period Temp Pulse Resp BP Sys/Espinal Pulse Ox Last 24 Hr 98.1 F-98.8 F 58-70 18-18 152-212/57-86 97-100 Exam: Examination: GENERAL: NAD. HEENT: PERRLA. EOMI. NECK: Neck is supple. CVS: Regular rate and rhythm. S1 and S2 are normal. RESPIRATORY: Lungs are clear. ABDOMEN: Soft and nontender. EXT: No edema. Peripheral pulses are present. 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 Bruise present in mid lower back MSK: No obvious deformity. Results - Labs CBC & BMP: 01/01/17 05:11 01/01/17 05:11 Lab Results: I have reviewed the past 24 hour labs Specialty Discharge - Follow Up or Referrals
[2017-01-01] MEDS: FERROUS SULFATE 325 MG TABLET PO SCH ×3 (10:50→20:11)
[2017-01-01] MEDS: CLOPIDOGREL 75 MG TABLET PO SCH (10:51)
[2017-01-01] MEDS: ASPIRIN EC 81 MG TABLET PO SCH (10:51)
[2017-01-01] MEDS: FUROSEMIDE 40 MG TABLET PO SCH (10:51)
[2017-01-01] MEDS: ATORVASTATIN 20 MG TABLET PO SCH (10:51)
[2017-01-01] MEDS: POTASSIUM CHLORIDE 20 MEQ TABLET PO SCH (10:52)
--- NOTE | 2017-01-01 17:08 | Cardiology Progress Note ---
Kasi Smith April RN, am scribing for, and in the presence of, KrysSwanDO 17 :08. Assessment and Plan - Time spent with patient Time spent with patient: Greater than 30 minutes (1) CAD (coronary artery disease) Status: Chronic Current Visit: Yes Qualifiers: Coronary Disease-Associated Artery/Lesion type: [place] artery [place] vs. transplanted heart: [place] heart (2) Near syncope Status: Acute Assessment and plan: From her pauses clearly Current Visit: Yes (3) Chronic back pain Status: Chronic Current Visit: Yes Qualifiers: Back pain location: low back pain (4) Essential (primary) hypertension Status: Chronic Current Visit: Yes Cardiology - PN: Subj Interval history: Civil Estimator: Dr. Cruz PCP: Dr. Munoz SUMMARY: Ms. Curran is a 76 year old female who is routinely followed by Dr. Cruz with a history of CAD, hypertension, back pain, and GERD. She underwent heart catheterization 10/26/2016 with successful PCI to the mid right coronary artery with a 4.0 x 12 mm Synergy drug-eluting stent. She was discharged home on baby aspirin and Brilinta 90 mg twice daily. When she saw Dr. Cruz in the clinic on 11/12/2016 it was found that she had only taken her Brilinta for 4 days and stopped it because it made her feel weak and her heart was pounding. He placed on Plavix 75 mg daily and reeducate her on the risk for stent thrombosis with discontinuation of dual antiplatelet therapy. Echo done during that hospitalization with ejection fraction of 55-60% with grade 2 diastolic dysfunction. She reports she has been having episodes of dizziness and feeling as if she would pass out for a week. On Saturday she says she felt bad all day and began to experience dizziness and "felt funny". She reports everything went black but she did not pass out, she was aware of her surroundings. Afterwards she reports feeling weak and "jumpy". She reports this episode was worse than any she had over the last week. She did hit her head, and reports it hurt initially but she is no longer having pain. She does continue to have some neck pain. CT of the head was done showed no acute intracranial pathology. Hip, thoracic spine, lumbar spine x-rays were done yesterday with no acute abnormality noted. She denies having any chest pain or shortness of breath with this episode. She reports she has palpitations chronically, but they have been worse over the last 2 weeks. She does not know if she had any palpitations at the time of this episode Saturday. 01/01/2017: Today she is seen resting in bed in no acute distress. She denies having any chest pain, shortness of breath, palpitations, or dizziness. She also denies having any episodes of syncope or near syncope. She is nauseated and complains of her head neck and back hurting. front desk monitor currently shows sinus rhythm with heart rates in the 70s. According to the telemetry strips she had no pauses during the night. Both labetalol and metoprolol have been stopped and hydralazine 50 mg p.o. 3 times daily as well as IV as needed has been added. Her blood pressures continued to be elevated during the night, but not quite as high. This morning it is 164/73. Labs are unremarkable. I discussed with Dr. Munoz this morning also rounded with Ms. Villaseñor. The patient blood pressure has been very very difficult to control in this patient has been sent away to another institution her care institution's for blood pressure control and the only thing the past that has seemed to work has been labetalol. However we have now developed an issue of significant pauses with beta blockers. The patient's blood pressure is slowly coming under control however she is having significant amount of headaches which may be due to the vasodilatory agents that we put her on. I discussed with the patient and her daughter at the bedside it may be that we are forced to put in a pacemaker just so that we can control her blood pressure with the only are few of the agents that have been able to demonstrate control of her blood pressure. She may not be able to tolerate hydralazine if she does not then I think we should proceed with dual-chamber pacemaker placement and resumption of her labetalol. I will hold her n.p.o. tonight. She has not developed any more pauses and cessation of her beta-blockers yesterday. Exam (Progress Note) - Constitutional Vitals: Period Temp Pulse Resp BP Sys/Espinal Pulse Ox Last 24 Hr 98.1 F-98.8 F 58-70 18-18 152-212/57-86 97-100 General appearance: normal weight, no acute distress - Head Head exam: Absent: abrasion, hematoma - Eye Eye exam: Absent: periorbital swelling, laceration to eyelids - Respiratory Respiratory exam: Present: clear to auscultation bilaterally. Absent: accessory muscle use, chest wall tenderness - Cardiovascular Cardiovascular exam: Present: regular rate and rhythm - GI/Abdominal GI/Abdominal exam: Present: normal bowel sounds, soft. Absent: distended, tenderness - Extremities Exam Extremities exam: Absent: calf tenderness, edema - Neurological Exam Neurological exam: Present: alert, oriented X3 - Psychiatric Psychiatric exam: Present: normal affect, normal mood - Skin Skin exam: Present: warm, dry Result/EKG - Labs CBC & BMP: 01/01/17 05:11 01/01/17 05:11 Lab Results: I have reviewed the past 24 hour labs Labs: Laboratory Results - last 24 hr 01/01/17 01/01/17 05:11 05:11 WBC 8.8 RBC 3.74 L Hgb 10.4 L Hct 32.2 L MCV 86.1 L MCH 28 MCHC 32.3 RDW 15.9 Plt Count 287 MPV 10.0 Neut % (Auto) 49.0 Lymph % (Auto) 28.9 [place] % (Auto) 11.7 Eos % (Auto) 9.4 Baso % (Auto) 0.7 Neut # (Auto) 4.3 Lymph # (Auto) 2.6 [place] # (Auto) 1.0 H Eos # (Auto) 0.8 Baso # (Auto) 0.1 Immature Gran % 0.3 Nucleated RBC % 0.0 Immature Gran # 0.03 Nucleated RBCs # 0.00 Sodium 144 Potassium 3.5 Chloride 106 Carbon Dioxide 30 Anion Gap 11.5 BUN 16 Creatinine 0.80 GFR Calculation 72 BUN/Creatinine Ratio 20.00 Glucose 100 Calculated Osmolality 286.8 Calcium 8.9 Magnesium 1.9 - EKG EKG results: interpreted by me EKG shows: sinus rhythm Specialty Discharge - Follow Up or Referrals IKrys Shea, DO, personally performed the services described in this documentation, ascribed by Deanne Villaseñor RN in my presence, and it is both accurate and complete 708 .
[2017-01-02] MEDS: SODIUM CHLORIDE 0.9% 1,000 ML IV SCH ×2 (01:32→12:04)
[2017-01-02] MEDS: ONDANSETRON 4 MG/2 ML VIAL IV PRN (02:33)
[2017-01-02] MEDS: oxyCODONE/ACETAMINOPHEN 5-325 MG TABLET PO PRN ×3 (02:34→20:20)
[2017-01-02] MEDS: hydrALAZINE 20 MG/1 ML VIAL IV PRN (04:29)
[2017-01-02] MEDS: MORPHINE ER 30 MG TABLET PO SCH ×2 (05:32→17:35)
[2017-01-02 06:10] LABS: Calcium 8.8 MG/DL (8.5-10.1); Magnesium 2.2 MG/DL (1.8-2.4); Osmolality,Calculated 281.4 MOS/KG (273-304); Potassium 4.6 MMOL/L (3.5-5.1)
[2017-01-02] MEDS: LEVOTHYROXINE 25 MCG TABLET PO SCH (06:27)
[2017-01-02] MEDS ORDERED: VANCOMYCIN 500 MG VIAL IRRIG ONE (07:29)
[2017-01-02] MEDS ORDERED: diphenhydrAMINE CAP 25 MG CAPSULE PO ONE (07:29)
[2017-01-02] MEDS ORDERED: DIAZEPAM 5 MG TABLET PO ONE (07:29)
[2017-01-02] MEDS ORDERED: VANCOMYCIN INJ 500 MG in SODIUM CHLORIDE 0.9% 100 ML IV ONE ×2 (07:29→08:00)
--- NOTE | 2017-01-02 07:32 | Cardiology Progress Note ---
Assessment and Plan (1) CAD (coronary artery disease) Status: Chronic Current Visit: Yes Qualifiers: Coronary Disease-Associated Artery/Lesion type: [place] artery [place] vs. transplanted heart: [place] heart (2) Near syncope Status: Acute Assessment and plan: From her pauses clearly. See HPI Current Visit: Yes (3) Chronic back pain Status: Chronic Current Visit: Yes Qualifiers: Back pain location: low back pain (4) Essential (primary) hypertension Status: Chronic Current Visit: Yes Cardiology - PN: Subj Interval history: The patient complains of intractable headaches since initiation of hydralazine. She has been seen in multiple locations at multiple times for refractory hypertension and through the years only medication that has seemed to control her blood pressure according to her primary care physician is labetalol. The patient has become intolerant of labetalol because of symptomatic bradycardia that has caused significant pauses and syncope. The patient is intolerant of her current regimen and also has many allergies and intolerances of many other medication I discussed with the patient and her family that was awake at the time I saw her about pacemaker. I discussed risk benefits and options the patient states she wants anything to get rid of this headache and get her blood pressure under control. Her blood pressure is very labile and she eats up high at night particularly as the hydralazine wears off. I think that we are limited in her options for treating her blood pressure. Although her pauses have abated since cessation of her labetalol I do not think we have much option but to resume labetalol. I will discuss with Dr. Henriquez and will anticipate dual-chamber pacemaker today via the left subclavian approach the patient understands all risk benefits and options and voices this. Once her pacemakers placed will resume her previous regimen that apparently controlled her blood pressure. Exam (Progress Note) - Constitutional Vitals: Period Temp Pulse Resp BP Sys/Espinal Pulse Ox Last 24 Hr 97 F-99.0 F 69-83 18-18 141-202/58-81 93-98 General appearance: normal weight - Respiratory Respiratory exam: Present: clear to auscultation bilaterally - Cardiovascular Cardiovascular exam: Present: regular rate and rhythm - GI/Abdominal GI/Abdominal exam: Present: normal bowel sounds - Neurological Exam Neurological exam: Present: alert, oriented X3 - Psychiatric Psychiatric exam: Present: normal affect, normal mood Result/EKG - Labs CBC & BMP: 06/20/17 05:11 01/02/17 04:30 Labs: Laboratory Results - last 24 hr 01/01/17 01/01/17 01/02/17 05:04 05:04 04:30 Sodium 140 Potassium 4.6 Chloride 102 Carbon Dioxide 28 Anion Gap 14.6 BUN 18 Creatinine 1.10 H GFR Calculation 49 BUN/Creatinine Ratio 16.00 Glucose 111 H Calculated Osmolality 281.4 Calcium 8.8 Magnesium 2.2 Free T4 1.02 TSH 3rd Generation 3.490 Specialty Discharge - Follow Up or Referrals
[2017-01-02] MEDS ORDERED: VANCOMYCIN 500 MG VIAL IRRIG SCH (08:00)
[2017-01-02] MEDS: VALSARTAN 160 MG TABLET PO SCH (08:17)
[2017-01-02] MEDS ORDERED: LIDOCAINE 1%/EPI INJ 20 ML VIAL ONE (08:31)
[2017-01-02] MEDS ORDERED: VANCOMYCIN 500 MG VIAL ONE (08:36)
[2017-01-02] MEDS ORDERED: HYDROmorphone 2 MG/1 ML VIAL ONE ×2 (08:51→09:17)
[2017-01-02] MEDS ORDERED: MIDAZOLAM 2 MG/2 ML VIAL ONE ×5 (08:51→09:53)
[2017-01-02] MEDS ORDERED: diphenhydrAMINE 50 MG/1 ML VIAL ONE (09:17)
[2017-01-02] MEDS ORDERED: TISSUE ADHESIVE 1 EACH APPLICATOR TOP ONE (10:17)
--- NOTE | 2017-01-02 10:35 | Cardiac Pacemaker ---
- Preoperative diagnosis Date of Procedure:: 01/02/17 Preoperative Diagnosis: Documented nonreversible symptomatic bradycardia due to , sinus node dysfunction Procedure: The patient has severe symptomatic bradycardia and requires medication to control her hypertension which worsened her bradycardia. This case was discussed with Dr. Brooks and we agreed that the patient needs dual-chamber pacemaker. She is undergoing dual-chamber pacemaker to manage this issue. Procedures performed 1. Percutaneous left subclavian venotomy with sheath placement 2. Placement of atrial and ventricular leads with threshold testing 3. Placement of dual-chamber pacemaker (note, this is an MRI compatible pacemaker system) The patient had symptomatic bradycardia due to high grade sinus node dysfunction and needed a pacemaker. After informed consent was obtained was taken to catheter prepped and draped in usual sterile manner. We used minimal sedation for this case. We placed a J-tipped wire in the left subclavian vein using a modified Seldinger technique in the usual fashion. With then a pocket approximately 2 cm below the left clavicular border using blunt and sharp dissection as well as electrocautery. We then pulled our leads into the pocket from below. Using a safe sheath, we placed a Medtronic 5076-58 centimeter ventricular lead into the right ventricular apex and secured it with a helical coil. Serial number on the ventricular lead is [id number]. Excellent capture and sensing thresholds were achieved. Using a second SafeSheath we then placed a Medtronic 507 652 cm atrial lead into the right atrial appendage and secured it with a helical coil. Excellent capture and sensing thresholds were achieved. A serial number on the atrial lead is [id number]. After the sheath had been removed, we sutured the leads to the pocket floor using Ethibond suture. We then rinsed the pocket with antibiotic solution and then connected the leads to a Medtronic Advisa DR MRI compatible pacemaker model [id number]. Serial number on the pacemaker is [id number]. After the device give been connected to the lead , it was placed in the pocket and sutured pocket floor with Ethibond suture. We then closed the pocket 2 layers using Vicryl suture. We then applied a topical adhesive followed by Steri-Strips and a dressing. There were no apparent complications during the procedure. The patient remained stable throughout the procedure and will now be transferred back to his room for recovery. Anesthesia: minimal conscious sedation Surgeon / Physician: John Henriquez Estimated blood loss: minimal Condition: stable - Medications / Follow-up
--- NOTE | 2017-01-02 11:05 | EKG Report ---
Stationary ECG Study 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
--- NOTE | 2017-01-02 11:23 | XRay Report ---
XR chest 1V portable Indication: Lead placement Comparison: Chest x-ray dated December 29, 2016 Technique: Single frontal view of the chest. Findings: Continued cardiomegaly. Interval placement of left-sided pacemaker apparatus. There is nonspecific prominence of lung markings suspicious for interstitial pulmonary edema. Chronic/fibrotic change and interstitial pneumonia may have similar appearance. Visualized osseous and surrounding soft tissue structures appear grossly unchanged. IMPRESSION: As above. PROCEDURE INTERPRETED AT [facility] DEPARTMENT OF RADIOLOGY Final Report Signed by: Dr Jerrell Torres
[2017-01-02] MEDS: ATORVASTATIN 20 MG TABLET PO SCH (13:08)
[2017-01-02] MEDS: ASPIRIN EC 81 MG TABLET PO SCH (13:08)
[2017-01-02] MEDS: POTASSIUM CHLORIDE 20 MEQ TABLET PO SCH (13:08)
[2017-01-02] MEDS: FERROUS SULFATE 325 MG TABLET PO SCH ×2 (13:08→20:20)
[2017-01-02] MEDS: CHLORTHALIDONE 25 MG TABLET PO SCH (13:08)
[2017-01-02] MEDS: CLOPIDOGREL 75 MG TABLET PO SCH (13:08)
--- NOTE | 2017-01-02 16:11 | Internal Med Progress Note ---
Assessment and Plan (1) Near syncope Status: Acute Assessment and plan: 76-year-old female admitted to acute care * Near syncopal episode. Patient had pauses yesterday on monitor. She is status post dual-chamber pacemaker placement. This pacemaker is MRI compatible. She may have to go to swing bed if nobody is able to take care of her at home * Back pain. Continue pain medications * Hypertension. Better control * Discussed with patient and her family Current Visit: Yes (2) Essential (primary) hypertension Status: Chronic Current Visit: Yes (3) Palpitations Status: Acute Current Visit: Yes (4) Congestive heart failure Status: Chronic Current Visit: No Qualifiers: Congestive heart failure type: diastolic Congestive heart failure chronicity: acute on chronic Qualified Code(s): I50.33 - Acute on chronic diastolic (congestive) heart failure (5) Uncontrolled hypertension Status: Chronic Current Visit: No Internal Medicine - PN: Subj Interval history: Patient is feeling better this afternoon. She had pacemaker placed this morning. She denies any chest pain or shortness of breath Exam (Progress Note) - Constitutional Vitals: Period Temp Pulse Resp BP Sys/Espinal Pulse Ox Last 24 Hr 97.2 F-99.0 F 71-83 18-20 107-202/52-78 90-98 Exam: Examination: GENERAL: NAD. NECK: Neck is supple. CVS: Regular rate and rhythm. S1 and S2 are normal. Pacemaker is present in the left chest wall RESPIRATORY: Lungs are clear. ABDOMEN: Soft and nontender. EXT: No edema. Peripheral pulses are present. GEOTHERMAL HVAC TECHNICIAN: Nonfocal SKIN: Warm and dry. MSK: No obvious deformity. Results - Labs CBC & BMP: 01/01/17 05:11 01/02/17 04:30 Lab Results: I have reviewed the past 24 hour labs Specialty Discharge - Follow Up or Referrals
[2017-01-03] MEDS: SODIUM CHLORIDE 0.9% 1,000 ML IV SCH ×3 (01:11→18:26)
[2017-01-03] MEDS: oxyCODONE/ACETAMINOPHEN 5-325 MG TABLET PO PRN ×3 (02:32→21:01)
[2017-01-03 04:43] LABS: Basophils # 0.1 10*3/uL (0.0-0.2); Basophils % 0.5 % (0.0-0.8); Eosinophils # 0.6 10*3/uL (0.0-0.87); Eosinophils % 4.7 % (0.00-10.9); Hematocrit 33.5 VOL% (35.7-47.0); Hemoglobin 10.5 GM/DL (12.0-16.0); Immature Granulocytes % 0.4 %; Immature Granulocytes Absolute 0.05 #; Lymphocytes # 2.2 10*3/uL (1.4-4.0); Lymphocytes % 18.7 % (21.3-54.2); Mean Corpuscular HGB Conc 31.3 GM/DL (32-36); Mean Corpuscular Hemoglobin 28 PG (27-34); Mean Corpuscular Volume 87.9 FL (87-102); Mean Platelet Volume 9.9 FL (9.6-12.0); Monocytes # 1.7 10*3/uL (0.11-0.8); Monocytes % 13.8 % (1.7-12.7); Neutrophils # 7.4 10*3/uL (1.4-7.4); Neutrophils % 61.9 % (38.7-73.9); Platelet Count 301 T/CUMM (130-400); Red Blood Count 3.81 MC/CUMM (3.8-5.5); Red Cell Distribution Width 16.3 % (9.3-17.3)
[2017-01-03 05:08] LABS: Calcium 9.1 MG/DL (8.5-10.1); Magnesium 2.2 MG/DL (1.8-2.4); Osmolality,Calculated 285.1 MOS/KG (273-304); Potassium 3.8 MMOL/L (3.5-5.1)
[2017-01-03] MEDS: LEVOTHYROXINE 25 MCG TABLET PO SCH ×2 (05:49→06:16)
[2017-01-03] MEDS: MORPHINE ER 30 MG TABLET PO SCH ×2 (05:49→18:21)
--- NOTE | 2017-01-03 07:14 | EKG Report ---
Stationary ECG Study 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
--- NOTE | 2017-01-03 08:01 | Internal Med Progress Note ---
Assessment and Plan (1) Near syncope Status: Acute Assessment and plan: 76-year-old female admitted to acute care * Status post pacemaker placement. She has been doing better this morning * Consult rn social services for swing bed placement * Back pain. Continue pain medications * Hypertension. Patient has been started back on labetalol * Discussed with patient and her family Current Visit: Yes (2) Essential (primary) hypertension Status: Chronic Current Visit: Yes (3) Palpitations Status: Acute Current Visit: Yes (4) Congestive heart failure Status: Chronic Current Visit: No Qualifiers: Congestive heart failure type: diastolic Congestive heart failure chronicity: acute on chronic Qualified Code(s): I50.33 - Acute on chronic diastolic (congestive) heart failure (5) Uncontrolled hypertension Status: Chronic Current Visit: No Internal Medicine - PN: Subj Interval history: Patient is feeling better this afternoon. She has had a good night. She has decided to go to swing bed Exam (Progress Note) - Constitutional Vitals: Period Temp Pulse Resp BP Sys/Espinal Pulse Ox Last 24 Hr 96.2 F-99.3 F 71-89 16-20 107-190/52-81 90-98 Exam: Examination: GENERAL: NAD. NECK: Neck is supple. CVS: Regular rate and rhythm. Pacemaker is present in the left chest wall RESPIRATORY: Lungs are clear. ABDOMEN: Soft and nontender. EXT: No edema. Peripheral pulses are present. SYSTEM SUPPORT TECHNICIAN: Nonfocal SKIN: Warm and dry. Results - Labs CBC & BMP: 01/03/17 04:18 01/03/17 04:18 Lab Results: I have reviewed the past 24 hour labs Specialty Discharge - Follow Up or Referrals
[2017-01-03] MEDS: CLOPIDOGREL 75 MG TABLET PO SCH (08:25)
[2017-01-03] MEDS: VALSARTAN 160 MG TABLET PO SCH (08:25)
[2017-01-03] MEDS: POTASSIUM CHLORIDE 20 MEQ TABLET PO SCH (08:25)
[2017-01-03] MEDS: ATORVASTATIN 20 MG TABLET PO SCH (08:26)
[2017-01-03] MEDS: ASPIRIN EC 81 MG TABLET PO SCH (08:26)
[2017-01-03] MEDS: LABETALOL 300 MG TABLET PO SCH ×3 (08:26→21:01)
[2017-01-03] MEDS: FERROUS SULFATE 325 MG TABLET PO SCH ×3 (08:26→21:04)
[2017-01-03] MEDS: CHLORTHALIDONE 25 MG TABLET PO SCH (08:26)
--- NOTE | 2017-01-03 08:31 | XRay Report ---
XR chest 2V Date: 01/03/2017 4:00 AM History: Lead placement Comparison: 01/02/2017 Technique: PA and lateral chest Findings: The heart is minimally enlarged with stable left subclavian atrioventricular permanent pacemaker. Reduced parenchymal findings with stable mediastinum and osseous structures. Prior anterior cervical fusion with postoperative findings at the GE junction. Impression: Stable left subclavian atrioventricular permanent pacemaker with no pneumothorax. Reduced atelectasis/edema in the lungs. PROCEDURE INTERPRETED AT [facility] DEPARTMENT OF RADIOLOGY Final Report Signed by: Dr. Jenny Greenberg
--- NOTE | 2017-01-03 15:47 | Cardiology Progress Note ---
Kasi Smith April RN, am scribing for, and in the presence of, Sosa Marcano DO 15 :46. Assessment and Plan (1) CAD (coronary artery disease) Status: Chronic Current Visit: Yes Qualifiers: Coronary Disease-Associated Artery/Lesion type: [place] artery [place] vs. transplanted heart: [place] heart (2) Near syncope Status: Acute Current Visit: Yes (3) Chronic back pain Status: Chronic Current Visit: Yes Qualifiers: Back pain location: low back pain (4) Essential (primary) hypertension Status: Chronic Current Visit: Yes Cardiology - PN: Subj Interval history: Railway Switch Operator: Dr. Cruz PCP: Dr. Munoz SUMMARY: Ms. Curran is a 76 year old female who is routinely followed by Dr. Cruz with a history of CAD, hypertension, back pain, and GERD. She underwent heart catheterization 10/26/2016 with successful PCI to the mid right coronary artery with a 4.0 x 12 mm Synergy drug-eluting stent. She was discharged home on baby aspirin and Brilinta 90 mg twice daily. When she saw Dr. Cruz in the clinic on 11/12/2016 it was found that she had only taken her Brilinta for 4 days and stopped it because it made her feel weak and her heart was pounding. He placed on Plavix 75 mg daily and reeducate her on the risk for stent thrombosis with discontinuation of dual antiplatelet therapy. Echo done during that hospitalization with ejection fraction of 55-60% with grade 2 diastolic dysfunction. She reports she has been having episodes of dizziness and feeling as if she would pass out for a week. On Saturday she says she felt bad all day and began to experience dizziness and "felt funny". She reports everything went black but she did not pass out, she was aware of her surroundings. Afterwards she reports feeling weak and "jumpy". She reports this episode was worse than any she had over the last week. She did hit her head, and reports it hurt initially but she is no longer having pain. She does continue to have some neck pain. CT of the head was done showed no acute intracranial pathology. Hip, thoracic spine, lumbar spine x-rays were done yesterday with no acute abnormality noted. She denies having any chest pain or shortness of breath with this episode. She reports she has palpitations chronically, but they have been worse over the last 2 weeks. She does not know if she had any palpitations at the time of this episode Saturday. 01/03/2017: Ms. Curran is seen resting in bed no acute distress. She had a dual- chamber pacemaker placed to left chest by Dr. Henriquez yesterday. Dressing pacemaker site is dry and intact. Left arm in sling. Device was interrogated this morning and according to the Medtronic industrial sales representative, it is functioning normally. Chest x-ray without evidence of pneumothorax. ekg monitor tech currently shows sinus rhythm with heart rates in the 60s. Her blood pressure has come down nicely with initiation of her Labetalol. We have nothing further to add at this time and I will sign off. Will make arrangements for her to follow up with Dr. Henriquez next week for wound check she is to continue wearing her arm sling gave her instructions to continue her dressing until she follows up with Dr. Henriquez. She will then be reestablished care with Dr. chandana ellington is in the hospital next week this when she is following up with Dr. Henriquez Exam (Progress Note) - Constitutional Vitals: Period Temp Pulse Resp BP Sys/Espinal Pulse Ox Last 24 Hr 96.2 F-99.3 F 71-89 16-20 107-190/52-81 90-98 General appearance: normal weight, no acute distress - Head Head exam: Absent: abrasion, hematoma - Eye Eye exam: Absent: periorbital swelling, laceration to eyelids - Neck Neck exam: Absent: tenderness - Respiratory Respiratory exam: Present: clear to auscultation bilaterally. Absent: accessory muscle use, chest wall tenderness - Cardiovascular Cardiovascular exam: Present: regular rate and rhythm - GI/Abdominal GI/Abdominal exam: Present: normal bowel sounds, soft. Absent: distended, tenderness - Extremities Exam Extremities exam: Absent: edema - Neurological Exam Neurological exam: Present: alert, oriented X3 - Psychiatric Psychiatric exam: Present: normal affect, normal mood - Skin Skin exam: Present: warm, dry, other (Dressing to pacemaker site dry and intact) Result/EKG - Labs CBC & BMP: 01/03/17 04:18 01/03/17 04:18 Lab Results: I have reviewed the past 24 hour labs Labs: Laboratory Results - last 24 hr 01/03/17 01/03/17 04:18 04:18 WBC 12.0 D RBC 3.81 Hgb 10.5 L Hct 33.5 L MCV 87.9 MCH 28 MCHC 31.3 L RDW 16.3 Plt Count 301 MPV 9.9 Neut % (Auto) 61.9 Lymph % (Auto) 18.7 L Quay % (Auto) 13.8 H Eos % (Auto) 4.7 Baso % (Auto) 0.5 Neut # (Auto) 7.4 Lymph # (Auto) 2.2 Quay # (Auto) 1.7 H Eos # (Auto) 0.6 Baso # (Auto) 0.1 Immature Gran % 0.4 Nucleated RBC % 0.0 Immature Gran # 0.05 Nucleated RBCs # 0.00 Sodium 142 Potassium 3.8 Chloride 103 Carbon Dioxide 30 Anion Gap 12.8 BUN 18 Creatinine 0.90 GFR Calculation 62 BUN/Creatinine Ratio 20.00 Glucose 110 H Calculated Osmolality 285.1 Calcium 9.1 Magnesium 2.2 - Diagnostic Findings Procedure: Chest x-ray: report reviewed by me, image reviewed by me - EKG EKG shows: sinus rhythm Specialty Discharge - Follow Up or Referrals Follow up with: John Henriquez MD [Physician] - 1 Week (wound check) IKrys Shea, , personally performed the services described in this documentation, ascribed by Deanne Villaseñor RN in my presence, and it is both accurate and complete 546 .
[2017-01-03] MEDS: ONDANSETRON 4 MG/2 ML VIAL IV PRN (18:31)
[2017-01-04] MEDS: oxyCODONE/ACETAMINOPHEN 5-325 MG TABLET PO PRN ×2 (03:47→09:36)
[2017-01-04] MEDS: SODIUM CHLORIDE 0.9% 1,000 ML IV SCH (05:27)
[2017-01-04] MEDS: LEVOTHYROXINE 25 MCG TABLET PO SCH (06:15)
[2017-01-04] MEDS: MORPHINE ER 30 MG TABLET PO SCH (06:15)
--- NOTE | 2017-01-04 08:17 | Discharge Summary ---
Hospital Course - Hospital Course Hospital Course: Patient is 76-year-old female with history of coronary artery disease, hypertension, chronic back pain and gastroesophageal reflux disease who was admitted after a syncopal episode. Patient was evaluated on telemetry and was found to have significant pauses. She was on beta-gilberto and labetalol at that time. Cardiology thought that she required a pacemaker. She has not tolerated blood pressure medications other than labetalol and valsartan. Her blood pressure was still quite high. She was treated with IV hydralazine on as needed basis. She underwent pacemaker placement by Dr. Henriquez. Patient has done well after the procedure. Her blood pressure is still on the higher side. She is going to be discharged to a swing bed unit. Will follow up in the office in about 4 weeks. She has follow-up scheduled with cardiology. She is followed by Dr. Cruz Diagnosis - Discharge Diagnosis (1) Near syncope Status: Acute (2) Essential (primary) hypertension Status: Chronic (3) Palpitations Status: Acute (4) Congestive heart failure Status: Chronic (5) Uncontrolled hypertension Status: Chronic Specialty Discharge - Follow Up or Referrals Follow up with: John Henriquez MD [Physician] - 1 Week (wound check) Discharge Plan - Discharge Data Disposition: Swing Bed, [facility] Based, [facility] Condition at Discharge: Stable Discharge Diet: advance to your usual diet Activity: as per physical therapy, other (Pacemaker precautions per cardiology) - Discharge Medications New Morphine ER Tab [Ms Contin] 30 mg PO Q12H tablet Continue Ergocalciferol (Vitamin D2) [Vitamin D2] 50,000 unit PO Q7D Valsartan [Diovan] 320 mg PO QAM Aspirin EC Tab 81 mg PO DAILY tablet Vitamin E 400 unit PO DAILY Meclizine HCl 12.5 mg PO Q4HR PRN PRN Reason: Dizziness Clopidogrel [Plavix] 75 mg PO DAILY Ferrous Sulfate Tab [Feosol Original Tab] 325 mg PO BID Furosemide Tab [Lasix Tab] 40 mg PO DAILY Biotin 5 mg PO DAILY Labetalol Tab [Trandate Tab] 600 mg PO TID PRN PRN Reason: Hypertension Potassium Chloride Cap/Tab [K Dur] 20 meq PO QPM Docusate Sodium Cap [Colace Cap] 100 mg PO BID capsule Levothyroxine Tab [Synthroid Tab] 25 mcg PO DAILY@0700 #30 tablet Cyanocobalamin Tab [Vitamin B12 Tab] 100 mcg PO DAILY Loperamide HCl [Loperamide] 2 mg PO Q6HR PRN PRN Reason: Diarrhea Atorvastatin [Lipitor] 20 mg PO DAILY Discontinued Acetaminophen Tab [Tylenol Tab] 650 mg PO Q6H PRN #0 tablet PRN Reason: Fever > 100.4 Or Headache - Follow Up or Referral Follow Up: John Henriquez MD [Physician] - 1 Week (wound check) - Forms/Instructions Instructions: Dehydration (ED) Additional Discharge Instructions: Appointment in office in 4 weeks with CBC, TSH and BMP Exam - Constitutional Vitals: Period Temp Pulse Resp BP Sys/Espinal Pulse Ox Last 24 Hr 97.1 F-98.4 F 67-89 18-20 118-175/50-74 94-97 Exam: Examination: GENERAL: NAD. NECK: Neck is supple. CVS: Regular rate and rhythm. Pacemaker is present in the left chest wall RESPIRATORY: Lungs are clear. ABDOMEN: Soft and nontender. EXT: No edema. Peripheral pulses are present. RIVER BOAT CAPTAIN: Nonfocal SKIN: Warm and dry. DS: Provider Date of admission: 12/29/16 18:50 Primary care physician: . No PCP Attending physician on admission: Steve Munoz MD Consults: 01/03/17 08:01 Consult to Case Mgmt/Social Srvs [CONS] Routine Reason for Case Mgmt/Social Srvs: Discharge Planning Consult Comment: Swing bed in [place] 01/03/17 08:43 Consult to Physical Therapy [CONS] Routine Reason for Physical Therapy: Evaluate and Treat OT [Consult to Occupational Therapy] [CONS] Routine Reason for Occupational Therapy: Evaluate and Treat Discharging clinician: Steve Munoz MD
[2017-01-04] MEDS: POTASSIUM CHLORIDE 20 MEQ TABLET PO SCH (09:21)
[2017-01-04] MEDS: CHLORTHALIDONE 25 MG TABLET PO SCH (09:21)
[2017-01-04] MEDS: FERROUS SULFATE 325 MG TABLET PO SCH (09:21)
[2017-01-04] MEDS: LABETALOL 300 MG TABLET PO SCH (09:21)
[2017-01-04] MEDS: CLOPIDOGREL 75 MG TABLET PO SCH (09:21)
[2017-01-04] MEDS: ASPIRIN EC 81 MG TABLET PO SCH (09:21)
[2017-01-04] MEDS: ATORVASTATIN 20 MG TABLET PO SCH (09:21)
[2017-01-04] MEDS: VALSARTAN 160 MG TABLET PO SCH (09:21)
[2017-01-04 11:34] VITALS: BP 164/70
[2017-01-04] MEDS: ACETAMINOPHEN 325 MG TABLET PO PRN (12:04)
== END 2017-01-04 13:30 | disposition swing bed (61) | DRG 242 ==
LOC: EDBD → EDUNIT# → N.ED 16:35 → SUATTDRO 18:43 → N.EDINP 18:43 → N.TELEN 20:00
PROVIDERS: ADMIT Internal Medicine; ATTEND Internal Medicine

== ENCOUNTER 2017-06-13 15:06 | Inpatient (IN) ==
[2017-06-13] MEDS ORDERED: SODIUM CHLORIDE 0.9% 1,000 ML IV STA (16:11)
[2017-06-13] MEDS ORDERED: ONDANSETRON 4 MG/2 ML VIAL IV STA (16:12)
[2017-06-13] MEDS ORDERED: ONDANSETRON 4 MG/2 ML VIAL ONE ×2 (16:23→20:19)
[2017-06-13 16:31] LABS: Basophils % 0.1 % (0.0-0.8); Eosinophils # 0.1 10*3/uL (0.0-0.87); Eosinophils % 0.4 % (0.00-10.9); Hematocrit 31.9 VOL% (35.7-47.0); Hemoglobin 10.7 GM/DL (12.0-16.0); Immature Granulocytes % 0.6 %; Immature Granulocytes Absolute 0.08 #; Lymphocytes % 7.4 % (21.3-54.2); Mean Corpuscular HGB Conc 33.5 GM/DL (32-36); Mean Corpuscular Hemoglobin 31 PG (27-34); Mean Corpuscular Volume 91.1 FL (87-102); Mean Platelet Volume 10.3 FL (9.6-12.0); Monocytes % 7.5 % (1.7-12.7); Neutrophils # 11.3 10*3/uL (1.4-7.4); Platelet Count 184 T/CUMM (130-400); White Blood Count 13.5 T/CUMM (4-12)
[2017-06-13 16:41] LABS: Magnesium 1.6 MG/DL (1.8-2.4)
[2017-06-13 16:48] LABS: Alanine Aminotransferase 21 U/L (13-56); Albumin 3.5 G/DL (3.4-5.0); Alkaline Phosphatase 117 U/L (45-117); Amylase 64 U/L (25-115); Aspartate Amino Transferase 18 U/L (0-37); Blood Urea Nitrogen 17 MG/DL (7-18); Calcium 8.4 MG/DL (8.5-10.1); Glucose 112 MG/DL (74-106); Lactic Acid 1.6 MMOL/L (0.4-2.0); Osmolality,Calculated 281.4 MOS/KG (273-304); Potassium 4.2 MMOL/L (3.5-5.1); Sodium 140 MMOL/L (136-145); Total Protein 6.3 G/DL (6.4-8.3); Troponin I Only < 0.015 NG/ML (0.00-0.045)
[2017-06-13 17:54] LABS: Apearance,Urine CLEAR (Clear); Bacteria,Urine Occasional /HPF (Few); Bilirubin,Urine Negative (Negative); Blood, Urine Small mg/dL (Negative); Glucose,Urine (UA) Negative (Negative); Ketones,Urine Negative (Negative); Nitrite,Urine Negative (Negative); Protein,Urine Negative; RBC,Urine 1 /HPF (0-4); Squamous Epithelial Cell,Urine Occasional /HPF (0-10); Urine Color Straw (Yellow); Urine Specific Gravity 1.008 (1.001-1.035); Urine Urobilinogen < 2.0 EU/DL (0.2-1.0); WBC,Urine 1 /HPF (0-6)
[2017-06-13] MEDS ORDERED: ONDANSETRON 4 MG/2 ML VIAL IV ONE (20:18)
[2017-06-13] MEDS ORDERED: ACETAMINOPHEN 325 MG TABLET PO PRN (21:07)
[2017-06-13] MEDS ORDERED: LEVOFLOXACIN INJ 750 MG in PREMIX 1 EACH IV STA (21:07)
[2017-06-13] MEDS ORDERED: ONDANSETRON 4 MG/2 ML VIAL IV PRN (21:07)
[2017-06-13] MEDS: oxyCODONE/ACETAMINOPHEN 5-325 MG TABLET PO PRN (21:30)
[2017-06-13] MEDS: DOCUSATE SODIUM 100 MG CAPSULE PO SCH (23:02)
[2017-06-13] MEDS: SODIUM CHLORIDE 0.45% 1,000 ML IV SCH (23:03)
[2017-06-14] MEDS: SODIUM CHLORIDE 0.45% 1,000 ML IV SCH ×4 (06:07→20:14)
[2017-06-14] MEDS: oxyCODONE/ACETAMINOPHEN 5-325 MG TABLET PO PRN ×2 (06:24→20:09)
[2017-06-14] MEDS ORDERED: MECLIZINE 12.5 MG TABLET PO PRN (08:24)
[2017-06-14] MEDS ORDERED: PANTOPRAZOLE 40 MG TABLET PO SCH (09:00)
[2017-06-14] MEDS: FUROSEMIDE 40 MG TABLET PO SCH (10:14)
[2017-06-14] MEDS: DOCUSATE SODIUM 100 MG CAPSULE PO SCH ×2 (10:15→21:15)
[2017-06-14] MEDS: VALSARTAN 160 MG TABLET PO SCH (10:15)
[2017-06-14] MEDS: LABETALOL 200 MG TABLET PO SCH ×3 (10:16→21:15)
[2017-06-14] MEDS: PANTOPRAZOLE 40 MG TABLET PO SCH (10:16)
[2017-06-14] MEDS: LEVOFLOXACIN INJ 500 MG in PREMIX 1 EACH IV SCH (10:18)
[2017-06-14] MEDS: MORPHINE ER 30 MG TABLET PO SCH ×2 (11:24→18:39)
[2017-06-14] MEDS: metroNIDAZOLE INJ 500 MG in PREMIX 1 EACH IV SCH ×3 (11:25→21:18)
[2017-06-14] MEDS ORDERED: ATORVASTATIN 20 MG TABLET PO SCH (19:00)
[2017-06-14] MEDS ORDERED: CLOPIDOGREL 75 MG TABLET PO SCH (19:00)
[2017-06-14] MEDS ORDERED: ASPIRIN EC 81 MG TABLET PO SCH (19:00)
[2017-06-14] MEDS ORDERED: POTASSIUM CHLORIDE 20 MEQ TABLET PO SCH (19:00)
[2017-06-15] MEDS: MORPHINE ER 30 MG TABLET PO SCH ×2 (00:29→09:36)
[2017-06-15] MEDS: metroNIDAZOLE INJ 500 MG in PREMIX 1 EACH IV SCH ×2 (04:03→10:53)
[2017-06-15] MEDS: oxyCODONE/ACETAMINOPHEN 5-325 MG TABLET PO PRN ×2 (04:05→11:09)
[2017-06-15] MEDS: SODIUM CHLORIDE 0.45% 1,000 ML IV SCH ×2 (06:05→14:17)
[2017-06-15 06:17] LABS: Alanine Aminotransferase 20 U/L (13-56); Alkaline Phosphatase 95 U/L (45-117); Aspartate Amino Transferase 18 U/L (0-37); Bilirubin,Total < 0.39 MG/DL (0.2-1.0); Blood Urea Nitrogen 10 MG/DL (7-18); Calcium 8.2 MG/DL (8.5-10.1); Glucose 105 MG/DL (74-106); Osmolality,Calculated 284.8 MOS/KG (273-304); Potassium 3.6 MMOL/L (3.5-5.1); Sodium 144 MMOL/L (136-145); Total Protein 5.8 G/DL (6.4-8.3)
[2017-06-15] MEDS ORDERED: LEVOTHYROXINE 25 MCG TABLET PO SCH (07:00)
[2017-06-15] MEDS: LEVOFLOXACIN INJ 500 MG in PREMIX 1 EACH IV SCH (09:29)
[2017-06-15] MEDS: LABETALOL 200 MG TABLET PO SCH ×2 (09:35→14:43)
[2017-06-15] MEDS: VALSARTAN 160 MG TABLET PO SCH (09:35)
[2017-06-15] MEDS: FUROSEMIDE 40 MG TABLET PO SCH (09:35)
[2017-06-15] MEDS: DOCUSATE SODIUM 100 MG CAPSULE PO SCH (09:35)
[2017-06-15] MEDS: PANTOPRAZOLE 40 MG TABLET PO SCH (09:36)
[2017-06-15 13:08] VITALS: BP 122/60
== END 2017-06-15 15:02 | disposition home or self-care (01) | DRG 391 ==
LOC: N.ED 15:06 → N.EDINP 15:06 → N.TELEN 19:17
PROVIDERS: ADMIT Internal Medicine; ATTEND Internal Medicine

== ENCOUNTER 2017-10-22 13:45 | Inpatient (IN) ==
[2017-10-22] MEDS ORDERED: SODIUM CHLORIDE 0.9% 1,000 ML IV STA (14:47)
[2017-10-22] MEDS ORDERED: ONDANSETRON 4 MG/2 ML VIAL IV STA ×2 (14:48→17:50)
[2017-10-22] MEDS ORDERED: ONDANSETRON 4 MG/2 ML VIAL ONE ×2 (14:58→17:50)
[2017-10-22 15:10] LABS: Basophils % 0.1 % (0.0-0.8); Eosinophils % 0.1 % (0.00-10.9); Hematocrit 38.1 VOL% (35.7-47.0); Hemoglobin 12.5 GM/DL (12.0-16.0); Immature Granulocytes % 0.7 %; Immature Granulocytes Absolute 0.11 #; Lymphocytes # 1.2 10*3/uL (1.4-4.0); Lymphocytes % 7.7 % (21.3-54.2); Mean Corpuscular HGB Conc 32.8 GM/DL (32-36); Mean Corpuscular Hemoglobin 30 PG (27-34); Mean Corpuscular Volume 90.1 FL (87-102); Mean Platelet Volume 9.6 FL (9.6-12.0); Monocytes # 0.6 10*3/uL (0.11-0.8); Monocytes % 3.7 % (1.7-12.7); Neutrophils # 13.4 10*3/uL (1.4-7.4); Neutrophils % 87.7 % (38.7-73.9); Platelet Count 308 T/CUMM (130-400); Red Blood Count 4.23 MC/CUMM (3.8-5.5); Red Cell Distribution Width 13.1 % (9.3-17.3); White Blood Count 15.2 T/CUMM (4-12)
[2017-10-22 15:52] LABS: Apearance,Urine CLEAR (Clear); Bilirubin,Urine Negative (Negative); Blood, Urine Negative (Negative); Glucose,Urine (UA) Negative (Negative); Hyaline Casts,Urine 2 /LPF (0-3); Ketones,Urine 5 mg/dL (Negative); Nitrite,Urine Negative (Negative); Protein,Urine Negative; RBC,Urine 2 /HPF (0-4); Squamous Epithelial Cell,Urine Occasional /HPF (0-10); Urine Color Yellow (Yellow); Urine Specific Gravity 1.013 (1.001-1.035); Urine Urobilinogen < 2.0 EU/DL (0.2-1.0); WBC,Urine <1 /HPF (0-6)
[2017-10-22 16:16] LABS: Albumin 4.1 G/DL (3.4-5.0); Bilirubin,Total 0.4 MG/DL (0.2-1.0); Calcium 9.4 MG/DL (8.5-10.1); Osmolality,Calculated 277.1 MOS/KG (273-304); Total Protein 7.6 G/DL (6.4-8.3)
[2017-10-22 16:18] LABS: Potassium 7.6 MMOL/L (3.5-5.1)
[2017-10-22] MEDS ORDERED: CALCIUM GLUCONATE 1,000 MG in SODIUM CHLORIDE 0.9% 100 ML IV ONE (16:27)
[2017-10-22] MEDS ORDERED: diphenhydrAMINE 50 MG/1 ML VIAL IV ONE (18:17)
[2017-10-22] MEDS ORDERED: ACETAMINOPHEN 325 MG TABLET PO PRN (18:17)
[2017-10-22] MEDS: SODIUM CHLORIDE 0.9% 1,000 ML IV SCH (19:00)
[2017-10-22] MEDS ORDERED: PROMETHAZINE 25 MG/1 ML VIAL IM PRN (19:37)
[2017-10-22] MEDS: SODIUM POLYSTYRENE SULFATE 15 GM/60 ML BOTTLE PO SCH (20:55)
[2017-10-22] MEDS: MORPHINE ER 30 MG TABLET PO SCH ×2 (20:57→23:06)
[2017-10-22] MEDS: DOCUSATE SODIUM 100 MG CAPSULE PO SCH (20:57)
[2017-10-22] MEDS: ONDANSETRON 4 MG/2 ML VIAL IV PRN (22:30)
[2017-10-22] MEDS ORDERED: PROCHLORPERAZINE 25 MG SUPP RECTAL ONE (23:30)
[2017-10-22] MEDS ORDERED: hydrOXYzine HCL 25 MG/1 ML VIAL IM ONE (23:30)
[2017-10-22] MEDS ORDERED: DEXAMETHASONE 4 MG/1 ML VIAL IV ONE (23:30)
[2017-10-22] MEDS ORDERED: FUROSEMIDE 20 MG/2 ML VIAL IV ONE (23:30)
[2017-10-22] MEDS: oxyCODONE/ACETAMINOPHEN 5-325 MG TABLET PO PRN (23:45)
[2017-10-23] MEDS: MORPHINE 4 MG/1 ML VIAL IV PRN ×5 (02:33→23:31)
[2017-10-23] MEDS: SODIUM CHLORIDE 0.9% 1,000 ML IV SCH ×3 (03:10→19:41)
[2017-10-23] MEDS: MORPHINE ER 30 MG TABLET PO SCH ×3 (05:40→21:04)
[2017-10-23 05:49] LABS: Calcium 8.6 MG/DL (8.5-10.1); Osmolality,Calculated 288.1 MOS/KG (273-304); Potassium 5.4 MMOL/L (3.5-5.1)
[2017-10-23] MEDS: ONDANSETRON 4 MG/2 ML VIAL IV PRN ×4 (06:00→20:47)
[2017-10-23] MEDS: cefTRIAXone 1,000 MG in SODIUM CHLORIDE 0.9% 100 ML IV SCH (10:16)
[2017-10-23] MEDS: rOPINIRole 0.25 MG TABLET PO SCH (14:30)
[2017-10-23] MEDS: PANTOPRAZOLE 40 MG TABLET PO SCH (14:30)
[2017-10-23] MEDS: DOCUSATE SODIUM 100 MG CAPSULE PO SCH ×2 (14:30→20:47)
[2017-10-23] MEDS: SODIUM POLYSTYRENE SULFATE 15 GM/60 ML BOTTLE PO SCH (14:47)
[2017-10-23 17:01] LABS: Troponin I Only < 0.015 NG/ML (0.00-0.045)
[2017-10-23] MEDS ORDERED: ASPIRIN EC 81 MG TABLET PO SCH (19:00)
[2017-10-23] MEDS ORDERED: ATORVASTATIN 20 MG TABLET PO SCH (19:00)
[2017-10-23 19:32] LABS: Troponin I Only < 0.015 NG/ML (0.00-0.045)
[2017-10-23] MEDS: ATORVASTATIN 20 MG TABLET PO SCH (20:47)
[2017-10-23] MEDS: ASPIRIN EC 81 MG TABLET PO SCH (20:48)
[2017-10-23 23:13] LABS: Troponin I Only 0.016 NG/ML (0.00-0.045)
[2017-10-24] MEDS: ONDANSETRON 4 MG/2 ML VIAL IV PRN ×2 (02:57→11:57)
[2017-10-24] MEDS: MORPHINE 4 MG/1 ML VIAL IV PRN (02:58)
[2017-10-24] MEDS: SODIUM CHLORIDE 0.9% 1,000 ML IV SCH ×2 (04:18→15:54)
[2017-10-24 04:58] LABS: Basophils % 0.2 % (0.0-0.8); Eosinophils % 0.1 % (0.00-10.9); Hematocrit 30.6 VOL% (35.7-47.0); Hemoglobin 9.8 GM/DL (12.0-16.0); Immature Granulocytes % 0.5 %; Immature Granulocytes Absolute 0.04 #; Lymphocytes # 1.5 10*3/uL (1.4-4.0); Lymphocytes % 18.1 % (21.3-54.2); Mean Corpuscular Hemoglobin 29 PG (27-34); Mean Corpuscular Volume 91.9 FL (87-102); Mean Platelet Volume 9.4 FL (9.6-12.0); Monocytes # 0.8 10*3/uL (0.11-0.8); Monocytes % 9.5 % (1.7-12.7); Neutrophils % 71.6 % (38.7-73.9); Platelet Count 237 T/CUMM (130-400); Red Blood Count 3.33 MC/CUMM (3.8-5.5); White Blood Count 8.4 T/CUMM (4-12)
[2017-10-24 05:25] LABS: Osmolality,Calculated 288.6 MOS/KG (273-304); Potassium 3.7 MMOL/L (3.5-5.1)
[2017-10-24] MEDS: MORPHINE ER 30 MG TABLET PO SCH ×3 (06:30→23:13)
[2017-10-24] MEDS: LEVOTHYROXINE 25 MCG TABLET PO SCH ×2 (06:34→10:16)
[2017-10-24] MEDS ORDERED: NON-FORMULARY MEDICATION (Oxycodone Hcl/Acetaminophen [Percocet 10-325 Mg Tablet] 1 EACH) PO PRN (09:12)
[2017-10-24] MEDS: PANTOPRAZOLE 40 MG TABLET PO SCH (10:15)
[2017-10-24] MEDS: DOCUSATE SODIUM 100 MG CAPSULE PO SCH ×3 (10:15→20:42)
[2017-10-24] MEDS: rOPINIRole 0.25 MG TABLET PO SCH (10:15)
[2017-10-24] MEDS ORDERED: CLOPIDOGREL 75 MG TABLET ONE (10:22)
[2017-10-24] MEDS: LABETALOL 200 MG TABLET PO SCH ×2 (10:40→20:37)
[2017-10-24] MEDS: cefTRIAXone 1,000 MG in SODIUM CHLORIDE 0.9% 100 ML IV SCH (10:42)
[2017-10-24] MEDS ORDERED: LABETALOL 200 MG TABLET PO SCH (19:00)
[2017-10-24] MEDS: ASPIRIN EC 81 MG TABLET PO SCH (20:37)
[2017-10-24] MEDS: ATORVASTATIN 20 MG TABLET PO SCH (20:37)
[2017-10-24] MEDS: oxyCODONE/ACETAMINOPHEN 5-325 MG TABLET PO PRN (23:14)
[2017-10-25] MEDS: SODIUM CHLORIDE 0.9% 1,000 ML IV SCH ×4 (00:30→17:22)
[2017-10-25 04:33] LABS: Basophils % 0.4 % (0.0-0.8); Eosinophils % 0.1 % (0.00-10.9); Hematocrit 32.8 VOL% (35.7-47.0); Hemoglobin 10.7 GM/DL (12.0-16.0); Immature Granulocytes % 0.4 %; Immature Granulocytes Absolute 0.03 #; Lymphocytes # 1.8 10*3/uL (1.4-4.0); Lymphocytes % 24.2 % (21.3-54.2); Mean Corpuscular HGB Conc 32.6 GM/DL (32-36); Mean Corpuscular Hemoglobin 29 PG (27-34); Mean Corpuscular Volume 89.1 FL (87-102); Mean Platelet Volume 9.4 FL (9.6-12.0); Monocytes # 0.8 10*3/uL (0.11-0.8); Monocytes % 10.1 % (1.7-12.7); Neutrophils # 4.9 10*3/uL (1.4-7.4); Neutrophils % 64.8 % (38.7-73.9); Platelet Count 251 T/CUMM (130-400); Red Blood Count 3.68 MC/CUMM (3.8-5.5); White Blood Count 7.5 T/CUMM (4-12)
[2017-10-25] MEDS: MORPHINE 4 MG/1 ML VIAL IV PRN (04:38)
[2017-10-25 05:01] LABS: Calcium 8.2 MG/DL (8.5-10.1); Osmolality,Calculated 288.6 MOS/KG (273-304)
[2017-10-25] MEDS ORDERED: POTASSIUM CHLORIDE 20 MEQ TABLET PO PRN (05:49)
[2017-10-25] MEDS: VALSARTAN 160 MG TABLET PO SCH (09:01)
[2017-10-25] MEDS: LEVOTHYROXINE 25 MCG TABLET PO SCH (09:01)
[2017-10-25] MEDS: PANTOPRAZOLE 40 MG TABLET PO SCH ×2 (09:01→21:23)
[2017-10-25] MEDS: rOPINIRole 0.25 MG TABLET PO SCH (09:02)
[2017-10-25] MEDS: DOCUSATE SODIUM 100 MG CAPSULE PO SCH ×3 (09:02→21:26)
[2017-10-25] MEDS: CLOPIDOGREL 75 MG TABLET PO SCH (09:02)
[2017-10-25] MEDS: LABETALOL 200 MG TABLET PO SCH ×2 (09:02→21:23)
[2017-10-25] MEDS: cefTRIAXone 1,000 MG in SODIUM CHLORIDE 0.9% 100 ML IV SCH (09:03)
[2017-10-25] MEDS: oxyCODONE/ACETAMINOPHEN 5-325 MG TABLET PO PRN ×2 (09:14→21:28)
[2017-10-25] MEDS: ONDANSETRON 4 MG/2 ML VIAL IV PRN (09:40)
[2017-10-25] MEDS: MORPHINE ER 30 MG TABLET PO SCH ×2 (14:46→21:22)
[2017-10-25] MEDS ORDERED: FUROSEMIDE 40 MG TABLET PO SCH (19:00)
[2017-10-25] MEDS: ASPIRIN EC 81 MG TABLET PO SCH (21:23)
[2017-10-25] MEDS: ATORVASTATIN 20 MG TABLET PO SCH (21:23)
[2017-10-26] MEDS: MORPHINE ER 30 MG TABLET PO SCH ×2 (00:19→06:36)
[2017-10-26 05:53] LABS: Calcium 7.4 MG/DL (8.5-10.1); Osmolality,Calculated 283.8 MOS/KG (273-304); Potassium 3.2 MMOL/L (3.5-5.1)
[2017-10-26] MEDS: SODIUM CHLORIDE 0.9% 1,000 ML IV SCH (06:25)
[2017-10-26] MEDS: LEVOTHYROXINE 25 MCG TABLET PO SCH (06:36)
[2017-10-26 08:21] VITALS: BP 141/59
[2017-10-26] MEDS: rOPINIRole 0.25 MG TABLET PO SCH (08:56)
[2017-10-26] MEDS: VALSARTAN 160 MG TABLET PO SCH (08:56)
[2017-10-26] MEDS: CLOPIDOGREL 75 MG TABLET PO SCH (08:57)
[2017-10-26] MEDS: LABETALOL 200 MG TABLET PO SCH (08:57)
[2017-10-26] MEDS: DOCUSATE SODIUM 100 MG CAPSULE PO SCH (08:57)
[2017-10-26] MEDS: PANTOPRAZOLE 40 MG TABLET PO SCH (08:57)
[2017-10-26] MEDS: cefTRIAXone 1,000 MG in SODIUM CHLORIDE 0.9% 100 ML IV SCH (08:58)
== END 2017-10-26 10:34 | disposition home or self-care (01) | DRG 389 ==
LOC: N.ED 13:45 → N.EDINP 17:05 → N.TELEN 17:30
PROVIDERS: ADMIT Internal Medicine; ATTEND Internal Medicine

== ENCOUNTER 2020-03-12 00:30 | Observation (INO) ==
[2020-03-12] MEDS ORDERED: ASPIRIN 325 MG TABLET PO STA (00:41)
[2020-03-12] MEDS ORDERED: MORPHINE 4 MG/1 ML VIAL IV ONE (00:41)
[2020-03-12] MEDS ORDERED: ONDANSETRON 4 MG/2 ML VIAL IV ONE (00:41)
[2020-03-12 01:20] LABS: PT Patient Result 10.8 SECS (9.8-11.9)
[2020-03-12 01:25] LABS: Basophils # 0.1 10*3/uL (0.0-0.2); Basophils % 0.6 % (0.0-0.8); Eosinophils % 0.5 % (0.00-10.9); Hematocrit 37.6 VOL% (35.7-47.0); Hemoglobin 11.6 GM/DL (12.0-16.0); Immature Granulocytes % 0.6 %; Immature Granulocytes Absolute 0.05 #; Lymphocytes # 2.6 10*3/uL (1.4-4.0); Lymphocytes % 32.1 % (21.3-54.2); Mean Corpuscular HGB Conc 30.9 GM/DL (32-36); Mean Corpuscular Volume 89.1 FL (87-102); Mean Platelet Volume 9.5 FL (9.6-12.0); Monocytes % 11.4 % (1.7-12.7); Neutrophils % 54.8 % (38.7-73.9); Platelet Count 412 T/CUMM (130-400); Red Blood Count 4.22 MC/CUMM (3.8-5.5); Red Cell Distribution Width 17.8 % (9.3-17.3); White Blood Count 8.1 T/CUMM (4-12)
[2020-03-12 01:28] LABS: Alanine Aminotransferase 33 U/L (13-56); Albumin 3.8 G/DL (3.4-5.0); Alkaline Phosphatase 123 U/L (45-117); Aspartate Amino Transferase 26 U/L (0-37); Bilirubin,Total < 0.39 MG/DL (0.2-1.0); Blood Urea Nitrogen 23 MG/DL (7-18); Calcium 8.9 MG/DL (8.5-10.1); Estimated Glom Filtration Rate 54 ML/MIN; Glucose 104 MG/DL (74-106); Osmolality,Calculated 286.1 MOS/KG (273-304); Total Protein 7.3 G/DL (6.4-8.3)
[2020-03-12 01:30] LABS: Troponin I 0.017 NG/ML (0.00-0.045)
[2020-03-12 01:49] LABS: Apearance,Urine CLEAR (Clear); Bilirubin,Urine Negative (Negative); Blood, Urine Small mg/dL (Negative); Glucose,Urine (UA) Negative (Negative); Ketones,Urine Negative (Negative); Mucus,Urine Occasional /LPF (Occasional); Nitrite,Urine Negative (Negative); Protein,Urine Negative; RBC,Urine 2 /HPF (0-4); Squamous Epithelial Cell,Urine Occasional /HPF (0-10); Urine Color Colorless (Yellow); Urine Specific Gravity 1.006 (1.001-1.035); Urine Urobilinogen < 2.0 EU/DL (0.2-1.0); WBC,Urine 2 /HPF (0-6)
[2020-03-12] MEDS ORDERED: ACETAMINOPHEN 325 MG TABLET PO PRN (02:30)
[2020-03-12 05:49] LABS: Basophils # 0.1 10*3/uL (0.0-0.2); Basophils % 0.8 % (0.0-0.8); Eosinophils % 0.5 % (0.00-10.9); Hemoglobin 10.9 GM/DL (12.0-16.0); Immature Granulocytes % 0.1 %; Immature Granulocytes Absolute 0.01 #; Lymphocytes # 2.5 10*3/uL (1.4-4.0); Lymphocytes % 31.9 % (21.3-54.2); Mean Corpuscular HGB Conc 31.1 GM/DL (32-36); Mean Corpuscular Volume 88.2 FL (87-102); Mean Platelet Volume 9.8 FL (9.6-12.0); Monocytes % 10.8 % (1.7-12.7); Neutrophils % 55.9 % (38.7-73.9); Platelet Count 391 T/CUMM (130-400); Red Blood Count 3.97 MC/CUMM (3.8-5.5); Red Cell Distribution Width 17.6 % (9.3-17.3)
[2020-03-12 06:20] LABS: Alanine Aminotransferase 30 U/L (13-56); Albumin 3.6 G/DL (3.4-5.0); Alkaline Phosphatase 114 U/L (45-117); Aspartate Amino Transferase 25 U/L (0-37); Bilirubin,Total < 0.39 MG/DL (0.2-1.0); Blood Urea Nitrogen 22 MG/DL (7-18); Calcium 8.6 MG/DL (8.5-10.1); Estimated Glom Filtration Rate 53 ML/MIN; Glucose 85 MG/DL (74-106); Osmolality,Calculated 284.1 MOS/KG (273-304); Total Protein 6.7 G/DL (6.4-8.3)
[2020-03-12] MEDS: PANTOPRAZOLE 40 MG TABLET PO SCH (09:41)
[2020-03-12] MEDS ORDERED: POTASSIUM CHLORIDE 20 MEQ TABLET PO ONE (12:19)
[2020-03-12] MEDS: LOSARTAN 50 MG TABLET PO SCH (14:36)
[2020-03-12] MEDS: ENOXAPARIN 80 MG/0.8 ML SYRINGE SUBCUT SCH (14:37)
[2020-03-12] MEDS: NITROGLYCERIN SL 0.4 MG TABLET SL SCH ×11 (15:19→18:30)
[2020-03-12] MEDS ORDERED: NITROGLYCERIN SL 0.4 MG TABLET SL PRN (15:30)
[2020-03-12] MEDS: LABETALOL 100 MG TABLET PO SCH ×2 (16:07→20:34)
[2020-03-12] MEDS: oxyCODONE/ACETAMINOPHEN 5-325 MG TABLET PO PRN ×2 (16:07→21:47)
[2020-03-12] MEDS: FUROSEMIDE 40 MG TABLET PO SCH (16:07)
[2020-03-12] MEDS: ASPIRIN EC 81 MG TABLET PO SCH (20:34)
[2020-03-12] MEDS: ATORVASTATIN 20 MG TABLET PO SCH (20:34)
[2020-03-13] MEDS: ENOXAPARIN 80 MG/0.8 ML SYRINGE SUBCUT SCH ×2 (01:12→14:27)
[2020-03-13] MEDS: oxyCODONE/ACETAMINOPHEN 5-325 MG TABLET PO PRN ×2 (05:28→21:23)
[2020-03-13 07:03] LABS: Calcium 8.5 MG/DL (8.5-10.1); Osmolality,Calculated 286.1 MOS/KG (273-304)
[2020-03-13] MEDS: LABETALOL 100 MG TABLET PO SCH ×2 (08:32→23:02)
[2020-03-13] MEDS: POTASSIUM CHLORIDE 20 MEQ TABLET PO SCH (08:32)
[2020-03-13] MEDS: FUROSEMIDE 40 MG TABLET PO SCH (08:32)
[2020-03-13] MEDS: PANTOPRAZOLE 40 MG TABLET PO SCH ×2 (08:32→23:02)
[2020-03-13] MEDS: LOSARTAN 50 MG TABLET PO SCH (08:32)
[2020-03-13] MEDS: DULoxetine 30 MG CAPSULE PO SCH (08:49)
[2020-03-13] MEDS: CALCIUM (CARBONATE)/VITAMIN D 500 MG-200 UNIT TABLET PO SCH (08:49)
[2020-03-13] MEDS: MORPHINE ER 30 MG TABLET PO SCH ×2 (08:50→17:19)
[2020-03-13] MEDS: CLOPIDOGREL 75 MG TABLET PO SCH (08:50)
[2020-03-13] MEDS: LINACLOTIDE 145 MCG CAPSULE PO SCH (08:51)
[2020-03-13] MEDS ORDERED: POTASSIUM CHLORIDE 20 MEQ TABLET PO ONE (12:31)
[2020-03-13] MEDS: ATORVASTATIN 20 MG TABLET PO SCH (21:23)
[2020-03-13] MEDS: rOPINIRole 1 MG TABLET PO SCH (21:23)
[2020-03-13] MEDS: ASPIRIN EC 81 MG TABLET PO SCH (21:26)
[2020-03-14] MEDS: ONDANSETRON 4 MG/2 ML VIAL IV PRN (00:58)
[2020-03-14] MEDS: MORPHINE ER 30 MG TABLET PO SCH ×3 (01:02→17:29)
[2020-03-14] MEDS: ENOXAPARIN 80 MG/0.8 ML SYRINGE SUBCUT SCH ×2 (01:05→13:35)
[2020-03-14 05:17] LABS: Basophils % 0.3 % (0.0-0.8); Eosinophils # 0.2 10*3/uL (0.0-0.87); Eosinophils % 1.4 % (0.00-10.9); Hematocrit 36.4 VOL% (35.7-47.0); Hemoglobin 11.2 GM/DL (12.0-16.0); Immature Granulocytes % 0.3 %; Immature Granulocytes Absolute 0.03 #; Lymphocytes # 2.3 10*3/uL (1.4-4.0); Lymphocytes % 21.1 % (21.3-54.2); Mean Corpuscular HGB Conc 30.8 GM/DL (32-36); Mean Corpuscular Volume 90.3 FL (87-102); Monocytes % 9.6 % (1.7-12.7); Neutrophils % 67.3 % (38.7-73.9); Platelet Count 394 T/CUMM (130-400); Red Blood Count 4.03 MC/CUMM (3.8-5.5); Red Cell Distribution Width 17.6 % (9.3-17.3); White Blood Count 10.7 T/CUMM (4-12)
[2020-03-14 06:06] LABS: Calcium 8.2 MG/DL (8.5-10.1); Osmolality,Calculated 283.3 MOS/KG (273-304)
[2020-03-14] MEDS: LEVOTHYROXINE 25 MCG TABLET PO SCH (07:09)
[2020-03-14] MEDS ORDERED: MAGNESIUM SULF RIDER 2 GM in PREMIX 1 EACH IV PRN (07:31)
[2020-03-14] MEDS ORDERED: POTASSIUM CHLORIDE RIDER 10 MEQ in PREMIX 1 EACH IV PRN (07:31)
[2020-03-14] MEDS: LABETALOL 100 MG TABLET PO SCH ×3 (09:06→21:14)
[2020-03-14] MEDS: CALCIUM (CARBONATE)/VITAMIN D 500 MG-200 UNIT TABLET PO SCH (09:07)
[2020-03-14] MEDS: POTASSIUM CHLORIDE 20 MEQ TABLET PO SCH (09:07)
[2020-03-14] MEDS: FUROSEMIDE 40 MG TABLET PO SCH ×2 (09:07→09:11)
[2020-03-14] MEDS: CLOPIDOGREL 75 MG TABLET PO SCH (09:07)
[2020-03-14] MEDS: PANTOPRAZOLE 40 MG TABLET PO SCH ×2 (09:07→21:11)
[2020-03-14] MEDS: LOSARTAN 50 MG TABLET PO SCH (09:07)
[2020-03-14] MEDS: DULoxetine 30 MG CAPSULE PO SCH (09:07)
[2020-03-14] MEDS: LINACLOTIDE 145 MCG CAPSULE PO SCH ×2 (09:10→09:13)
[2020-03-14] MEDS: SODIUM CHLORIDE 0.9% 1,000 ML IV SCH ×2 (09:24→21:14)
[2020-03-14] MEDS: oxyCODONE/ACETAMINOPHEN 5-325 MG TABLET PO PRN ×2 (12:11→21:12)
[2020-03-14] MEDS: ASPIRIN EC 81 MG TABLET PO SCH (21:11)
[2020-03-14] MEDS: rOPINIRole 1 MG TABLET PO SCH (21:11)
[2020-03-14] MEDS: ATORVASTATIN 20 MG TABLET PO SCH (21:11)
[2020-03-15] MEDS: MORPHINE ER 30 MG TABLET PO SCH ×3 (00:11→17:01)
[2020-03-15] MEDS: ENOXAPARIN 80 MG/0.8 ML SYRINGE SUBCUT SCH (01:29)
[2020-03-15 05:15] LABS: Basophils % 0.4 % (0.0-0.8); Eosinophils # 0.3 10*3/uL (0.0-0.87); Eosinophils % 4.6 % (0.00-10.9); Hematocrit 37.8 VOL% (35.7-47.0); Hemoglobin 11.4 GM/DL (12.0-16.0); Immature Granulocytes % 0.1 %; Immature Granulocytes Absolute 0.01 #; Lymphocytes # 2.1 10*3/uL (1.4-4.0); Lymphocytes % 31.5 % (21.3-54.2); Mean Corpuscular HGB Conc 30.2 GM/DL (32-36); Mean Platelet Volume 9.7 FL (9.6-12.0); Monocytes % 11.4 % (1.7-12.7); Platelet Count 347 T/CUMM (130-400); Red Blood Count 4.11 MC/CUMM (3.8-5.5); Red Cell Distribution Width 17.3 % (9.3-17.3); White Blood Count 6.8 T/CUMM (4-12)
[2020-03-15] MEDS: ONDANSETRON 4 MG/2 ML VIAL IV PRN (05:30)
[2020-03-15 05:44] LABS: Atypical Lymphocytes Few; Eosinophils 5 % (0-10); Lymphocytes 40 % (20-55); Segmented Neutrophils 49 % (50-85); Total Cells Counted 100
[2020-03-15 05:45] LABS: Hypochromasia 1+; Microcytosis 1+; Platelet Estimate Normal
[2020-03-15 05:50] LABS: Calcium 8.8 MG/DL (8.5-10.1)
[2020-03-15] MEDS ORDERED: DIAZEPAM 5 MG TABLET PO ONE (06:00)
[2020-03-15] MEDS ORDERED: diphenhydrAMINE CAP 25 MG CAPSULE PO ONE (06:00)
[2020-03-15] MEDS ORDERED: SODIUM CHLORIDE 0.45% 1,000 ML IV SCH (06:00)
[2020-03-15] MEDS: CLOPIDOGREL 75 MG TABLET PO SCH ×2 (06:40→09:00)
[2020-03-15] MEDS: LEVOTHYROXINE 25 MCG TABLET PO SCH (06:40)
[2020-03-15] MEDS ORDERED: HEPARIN/NACL 0.9% 2 UNITS/ML 1,000 ML IV ONE (06:43)
[2020-03-15] MEDS ORDERED: LIDOCAINE 1% 20 ML VIAL ONE (06:43)
[2020-03-15] MEDS ORDERED: MIDAZOLAM 2 MG/2 ML VIAL ONE (07:09)
[2020-03-15] MEDS ORDERED: HYDROmorphone 2 MG/1 ML VIAL ONE (07:09)
[2020-03-15] MEDS: PANTOPRAZOLE 40 MG TABLET PO SCH ×2 (09:00→21:22)
[2020-03-15] MEDS: LINACLOTIDE 145 MCG CAPSULE PO SCH (09:00)
[2020-03-15] MEDS: POTASSIUM CHLORIDE 20 MEQ TABLET PO SCH (09:00)
[2020-03-15] MEDS: CALCIUM (CARBONATE)/VITAMIN D 500 MG-200 UNIT TABLET PO SCH (09:00)
[2020-03-15] MEDS: SODIUM CHLORIDE 0.9% 1,000 ML IV SCH ×2 (12:00→21:21)
[2020-03-15] MEDS: LABETALOL 100 MG TABLET PO SCH ×2 (12:02→21:23)
[2020-03-15] MEDS: DULoxetine 30 MG CAPSULE PO SCH (12:03)
[2020-03-15] MEDS: LOSARTAN 50 MG TABLET PO SCH (14:39)
[2020-03-15] MEDS: FUROSEMIDE 40 MG TABLET PO SCH (14:49)
[2020-03-15] MEDS: rOPINIRole 1 MG TABLET PO SCH (21:21)
[2020-03-15] MEDS: oxyCODONE/ACETAMINOPHEN 5-325 MG TABLET PO PRN (21:22)
[2020-03-15] MEDS: ASPIRIN EC 81 MG TABLET PO SCH (21:22)
[2020-03-15] MEDS: ATORVASTATIN 20 MG TABLET PO SCH (21:22)
[2020-03-16] MEDS: MORPHINE ER 30 MG TABLET PO SCH ×2 (00:34→08:14)
[2020-03-16 05:49] LABS: Basophils % 0.3 % (0.0-0.8); Eosinophils # 0.2 10*3/uL (0.0-0.87); Eosinophils % 2.7 % (0.00-10.9); Hematocrit 33.7 VOL% (35.7-47.0); Hemoglobin 10.2 GM/DL (12.0-16.0); Immature Granulocytes % 0.3 %; Immature Granulocytes Absolute 0.03 #; Lymphocytes # 2.2 10*3/uL (1.4-4.0); Lymphocytes % 25.3 % (21.3-54.2); Mean Corpuscular HGB Conc 30.3 GM/DL (32-36); Mean Corpuscular Volume 90.3 FL (87-102); Mean Platelet Volume 9.9 FL (9.6-12.0); Monocytes % 12.6 % (1.7-12.7); Neutrophils % 58.8 % (38.7-73.9); Platelet Count 311 T/CUMM (130-400); Red Blood Count 3.73 MC/CUMM (3.8-5.5); Red Cell Distribution Width 17.1 % (9.3-17.3); White Blood Count 8.6 T/CUMM (4-12)
[2020-03-16 06:09] LABS: Calcium 8.1 MG/DL (8.5-10.1)
[2020-03-16] MEDS ORDERED: LEVOTHYROXINE 25 MCG TABLET PO SCH (07:30)
[2020-03-16] MEDS: POTASSIUM CHLORIDE 20 MEQ TABLET PO SCH (08:15)
[2020-03-16] MEDS: LOSARTAN 50 MG TABLET PO SCH (08:15)
[2020-03-16] MEDS: CALCIUM (CARBONATE)/VITAMIN D 500 MG-200 UNIT TABLET PO SCH (08:16)
[2020-03-16] MEDS: FUROSEMIDE 40 MG TABLET PO SCH (08:16)
[2020-03-16] MEDS: LABETALOL 100 MG TABLET PO SCH (08:16)
[2020-03-16] MEDS: PANTOPRAZOLE 40 MG TABLET PO SCH (08:17)
[2020-03-16] MEDS: LINACLOTIDE 145 MCG CAPSULE PO SCH (08:17)
[2020-03-16] MEDS: CLOPIDOGREL 75 MG TABLET PO SCH (08:17)
[2020-03-16] MEDS: DULoxetine 30 MG CAPSULE PO SCH (08:17)
[2020-03-16] MEDS ORDERED: KETOCONAZOLE 2% CREAM 30 GM TUBE TOP SCH (09:00)
[2020-03-16 11:51] VITALS: BP 134/62
== END 2020-03-16 14:04 | disposition home or self-care (01) ==
LOC: EDUNIT# → EDBD → N.EDINP 00:30 → N.ED 00:30 → N.EDINP 04:06 → N.TELES 04:41
PROVIDERS: ADMIT Internal Medicine; ATTEND Internal Medicine

== ENCOUNTER 2020-04-18 10:31 | Inpatient (IN) ==
[2020-04-18] MEDS ORDERED: SODIUM CHLORIDE 0.9% 1,000 ML IV STA (11:22)
[2020-04-18 11:27] LABS: Basophils % 0.1 % (0.0-0.8); Hematocrit 37.8 VOL% (35.7-47.0); Immature Granulocytes % 0.4 %; Immature Granulocytes Absolute 0.03 #; Lymphocytes # 1.3 10*3/uL (1.4-4.0); Lymphocytes % 17.8 % (21.3-54.2); Mean Corpuscular HGB Conc 31.7 GM/DL (32-36); Mean Corpuscular Volume 90.4 FL (87-102); Mean Platelet Volume 9.9 FL (9.6-12.0); Monocytes % 7.6 % (1.7-12.7); Neutrophils % 74.1 % (38.7-73.9); Platelet Count 158 T/CUMM (130-400); Red Blood Count 4.18 MC/CUMM (3.8-5.5); Red Cell Distribution Width 15.5 % (9.3-17.3); White Blood Count 7.5 T/CUMM (4-12)
[2020-04-18 12:01] LABS: Alanine Aminotransferase 21 U/L (13-56); Albumin 3.2 G/DL (3.4-5.0); Alkaline Phosphatase 121 U/L (45-117); Aspartate Amino Transferase 28 U/L (0-37); Bilirubin,Total < 0.39 MG/DL (0.2-1.0); Blood Urea Nitrogen 11 MG/DL (7-18); Calcium 8.1 MG/DL (8.5-10.1); Estimated Glom Filtration Rate 48 ML/MIN; Ferritin 238.3 ng/ml (8-252); Glucose 113 MG/DL (74-106); Osmolality,Calculated 274.7 MOS/KG (273-304); Total Protein 6.9 G/DL (6.4-8.3)
[2020-04-18] MEDS ORDERED: FAMOTIDINE 20 MG/2 ML VIAL IV STA (12:46)
[2020-04-18] MEDS ORDERED: DEXAMETHASONE 4 MG/1 ML VIAL IV STA (12:46)
[2020-04-18] MEDS ORDERED: CETIRIZINE 10 MG TABLET PO STA (12:46)
[2020-04-18] MEDS ORDERED: ACETAMINOPHEN 325 MG TABLET PO PRN (13:42)
[2020-04-18] MEDS ORDERED: NITROGLYCERIN SL 0.4 MG TABLET SL PRN (13:56)
[2020-04-18] MEDS: NITROGLYCERIN SL 0.4 MG TABLET SL SCH ×2 (13:56→13:57)
[2020-04-18] MEDS: ENOXAPARIN 40 MG/0.4 ML SYRINGE SUBCUT SCH (15:01)
[2020-04-18] MEDS: AZITHROMYCIN INJ 500 MG in SODIUM CHLORIDE 0.9% 250 ML IV SCH (15:01)
[2020-04-18] MEDS: SODIUM CHLORIDE 0.9% 1,000 ML IV SCH (15:19)
[2020-04-18] MEDS: MORPHINE ER 15 MG TABLET PO PRN (19:42)
[2020-04-18] MEDS: DULoxetine 30 MG CAPSULE PO SCH (20:20)
[2020-04-18] MEDS: ATORVASTATIN 20 MG TABLET PO SCH (20:20)
[2020-04-18] MEDS: DOCUSATE SODIUM 100 MG CAPSULE PO SCH (20:20)
[2020-04-18] MEDS: FAMOTIDINE 20 MG TABLET PO SCH (20:20)
[2020-04-18] MEDS: rOPINIRole 1 MG TABLET PO SCH (20:20)
[2020-04-18] MEDS: ASPIRIN EC 81 MG TABLET PO SCH (20:20)
[2020-04-18] MEDS: LABETALOL 200 MG TABLET PO SCH (20:20)
[2020-04-18] MEDS: oxyCODONE/ACETAMINOPHEN 5-325 MG TABLET PO PRN (21:23)
[2020-04-19] MEDS: SODIUM CHLORIDE 0.9% 1,000 ML IV SCH ×4 (00:56→23:31)
[2020-04-19] MEDS: LEVOTHYROXINE 25 MCG TABLET PO SCH (06:09)
[2020-04-19] MEDS: LINACLOTIDE 145 MCG CAPSULE PO SCH (08:55)
[2020-04-19] MEDS: LABETALOL 200 MG TABLET PO SCH ×2 (08:55→20:23)
[2020-04-19] MEDS: CETIRIZINE 10 MG TABLET PO SCH (08:56)
[2020-04-19] MEDS: POTASSIUM CHLORIDE 20 MEQ TABLET PO SCH (08:56)
[2020-04-19] MEDS: DOCUSATE SODIUM 100 MG CAPSULE PO SCH ×2 (08:56→20:23)
[2020-04-19] MEDS: FUROSEMIDE 40 MG TABLET PO SCH ×2 (08:57→09:18)
[2020-04-19] MEDS: LOSARTAN 50 MG TABLET PO SCH (08:57)
[2020-04-19] MEDS: DULoxetine 30 MG CAPSULE PO SCH ×2 (08:57→20:23)
[2020-04-19] MEDS: CALCIUM (CARBONATE)/VITAMIN D 600 MG-400 UNIT TABLET PO SCH (08:57)
[2020-04-19] MEDS: CLOPIDOGREL 75 MG TABLET PO SCH (08:57)
[2020-04-19] MEDS: oxyCODONE/ACETAMINOPHEN 5-325 MG TABLET PO PRN ×2 (08:58→20:23)
[2020-04-19] MEDS: DEXAMETHASONE 4 MG/1 ML VIAL IV SCH ×2 (08:59→14:10)
[2020-04-19] MEDS: FAMOTIDINE 20 MG TABLET PO SCH ×2 (08:59→20:23)
[2020-04-19] MEDS: MORPHINE ER 15 MG TABLET PO PRN ×2 (13:26→23:32)
[2020-04-19] MEDS: ENOXAPARIN 40 MG/0.4 ML SYRINGE SUBCUT SCH (14:10)
[2020-04-19] MEDS: AZITHROMYCIN INJ 500 MG in SODIUM CHLORIDE 0.9% 250 ML IV SCH (14:10)
[2020-04-19] MEDS: LOPERAMIDE 2 MG CAPSULE PO PRN ×3 (16:56→23:32)
[2020-04-19] MEDS: ASPIRIN EC 81 MG TABLET PO SCH (20:22)
[2020-04-19] MEDS: ATORVASTATIN 20 MG TABLET PO SCH (20:23)
[2020-04-19] MEDS: rOPINIRole 1 MG TABLET PO SCH (20:23)
[2020-04-20 05:48] LABS: Hematocrit 33.8 VOL% (35.7-47.0); Hemoglobin 10.7 GM/DL (12.0-16.0); Immature Granulocytes % 0.5 %; Immature Granulocytes Absolute 0.04 #; Lymphocytes # 0.6 10*3/uL (1.4-4.0); Lymphocytes % 7.7 % (21.3-54.2); Mean Corpuscular HGB Conc 31.7 GM/DL (32-36); Mean Corpuscular Volume 88.7 FL (87-102); Mean Platelet Volume 10.3 FL (9.6-12.0); Monocytes % 6.5 % (1.7-12.7); Neutrophils % 85.3 % (38.7-73.9); Platelet Count 143 T/CUMM (130-400); Red Blood Count 3.81 MC/CUMM (3.8-5.5); Red Cell Distribution Width 15.3 % (9.3-17.3); White Blood Count 7.9 T/CUMM (4-12)
[2020-04-20] MEDS: LEVOTHYROXINE 25 MCG TABLET PO SCH (06:12)
[2020-04-20] MEDS: FAMOTIDINE 20 MG TABLET PO SCH ×2 (08:53→21:00)
[2020-04-20] MEDS: DOCUSATE SODIUM 100 MG CAPSULE PO SCH ×2 (08:53→22:30)
[2020-04-20] MEDS: CLOPIDOGREL 75 MG TABLET PO SCH (08:54)
[2020-04-20] MEDS: LOSARTAN 50 MG TABLET PO SCH (08:54)
[2020-04-20] MEDS: LABETALOL 200 MG TABLET PO SCH ×2 (08:54→21:00)
[2020-04-20] MEDS: CALCIUM (CARBONATE)/VITAMIN D 600 MG-400 UNIT TABLET PO SCH (08:55)
[2020-04-20] MEDS: DULoxetine 30 MG CAPSULE PO SCH ×2 (08:55→21:00)
[2020-04-20] MEDS: FUROSEMIDE 40 MG TABLET PO SCH (08:55)
[2020-04-20] MEDS: CETIRIZINE 10 MG TABLET PO SCH (08:55)
[2020-04-20] MEDS: DEXAMETHASONE 4 MG/1 ML VIAL IV SCH (08:56)
[2020-04-20] MEDS: POTASSIUM CHLORIDE 20 MEQ TABLET PO SCH (08:58)
[2020-04-20] MEDS: oxyCODONE/ACETAMINOPHEN 5-325 MG TABLET PO PRN ×2 (08:59→18:11)
[2020-04-20 09:54] LABS: Calcium 8.5 MG/DL (8.5-10.1); Osmolality,Calculated 280.4 MOS/KG (273-304)
[2020-04-20] MEDS: ONDANSETRON 4 MG/2 ML VIAL IV PRN ×2 (10:08→23:51)
[2020-04-20] MEDS: AZITHROMYCIN INJ 500 MG in SODIUM CHLORIDE 0.9% 250 ML IV SCH (14:27)
[2020-04-20] MEDS: ENOXAPARIN 40 MG/0.4 ML SYRINGE SUBCUT SCH (14:30)
[2020-04-20] MEDS: SODIUM CHLORIDE 0.9% 1,000 ML IV SCH (14:55)
[2020-04-20] MEDS: MORPHINE ER 15 MG TABLET PO PRN ×2 (14:55→23:46)
[2020-04-20] MEDS: ATORVASTATIN 20 MG TABLET PO SCH (21:00)
[2020-04-20] MEDS: rOPINIRole 1 MG TABLET PO SCH (21:00)
[2020-04-20] MEDS: ASPIRIN EC 81 MG TABLET PO SCH (21:00)
[2020-04-21] MEDS: SODIUM CHLORIDE 0.9% 1,000 ML IV SCH ×2 (04:49→20:31)
[2020-04-21] MEDS: LEVOTHYROXINE 25 MCG TABLET PO SCH (06:06)
[2020-04-21] MEDS: CALCIUM (CARBONATE)/VITAMIN D 600 MG-400 UNIT TABLET PO SCH (09:32)
[2020-04-21] MEDS: CLOPIDOGREL 75 MG TABLET PO SCH (09:32)
[2020-04-21] MEDS: CETIRIZINE 10 MG TABLET PO SCH (09:32)
[2020-04-21] MEDS: LOSARTAN 50 MG TABLET PO SCH (09:32)
[2020-04-21] MEDS: FUROSEMIDE 40 MG TABLET PO SCH (09:33)
[2020-04-21] MEDS: DULoxetine 30 MG CAPSULE PO SCH ×2 (09:33→20:05)
[2020-04-21] MEDS: LABETALOL 200 MG TABLET PO SCH ×2 (09:33→20:05)
[2020-04-21] MEDS: FAMOTIDINE 20 MG TABLET PO SCH ×2 (09:33→20:05)
[2020-04-21] MEDS: POTASSIUM CHLORIDE 20 MEQ TABLET PO SCH (09:33)
[2020-04-21] MEDS: DEXAMETHASONE 4 MG/1 ML VIAL IV SCH (09:34)
[2020-04-21] MEDS: LINACLOTIDE 145 MCG CAPSULE PO SCH (09:34)
[2020-04-21] MEDS: oxyCODONE/ACETAMINOPHEN 5-325 MG TABLET PO PRN ×2 (09:35→15:48)
[2020-04-21] MEDS: DOCUSATE SODIUM 100 MG CAPSULE PO SCH ×2 (09:35→21:09)
[2020-04-21] MEDS: LOPERAMIDE 2 MG CAPSULE PO PRN ×2 (11:53→15:49)
[2020-04-21] MEDS: AZITHROMYCIN INJ 500 MG in SODIUM CHLORIDE 0.9% 250 ML IV SCH (15:47)
[2020-04-21] MEDS: ENOXAPARIN 40 MG/0.4 ML SYRINGE SUBCUT SCH (15:47)
[2020-04-21] MEDS: ATORVASTATIN 20 MG TABLET PO SCH (20:05)
[2020-04-21] MEDS: MORPHINE ER 15 MG TABLET PO PRN (20:05)
[2020-04-21] MEDS: ASPIRIN EC 81 MG TABLET PO SCH (20:05)
[2020-04-21] MEDS: rOPINIRole 1 MG TABLET PO SCH (20:05)
[2020-04-22] MEDS: oxyCODONE/ACETAMINOPHEN 5-325 MG TABLET PO PRN ×3 (04:03→20:28)
[2020-04-22] MEDS: SODIUM CHLORIDE 0.9% 1,000 ML IV SCH (04:05)
[2020-04-22 06:22] LABS: Basophils % 0.2 % (0.0-0.8); Hematocrit 36.2 VOL% (35.7-47.0); Hemoglobin 11.7 GM/DL (12.0-16.0); Immature Granulocytes % 1.3 %; Immature Granulocytes Absolute 0.06 #; Lymphocytes # 0.7 10*3/uL (1.4-4.0); Lymphocytes % 15.1 % (21.3-54.2); Mean Corpuscular HGB Conc 32.3 GM/DL (32-36); Mean Platelet Volume 10.2 FL (9.6-12.0); Monocytes % 10.9 % (1.7-12.7); Neutrophils % 72.5 % (38.7-73.9); Platelet Count 177 T/CUMM (130-400); Red Blood Count 4.16 MC/CUMM (3.8-5.5); White Blood Count 4.7 T/CUMM (4-12)
[2020-04-22] MEDS: LEVOTHYROXINE 25 MCG TABLET PO SCH (06:25)
[2020-04-22 06:46] LABS: Hypochromasia 1+; Lymphocytes 15 % (20-55); Microcytosis 1+; Platelet Estimate Adequate; Segmented Neutrophils 77 % (50-85); Total Cells Counted 100
[2020-04-22 08:30] LABS: Calcium 7.7 MG/DL (8.5-10.1)
[2020-04-22] MEDS: ONDANSETRON 4 MG/2 ML VIAL IV PRN ×2 (09:03→18:25)
[2020-04-22] MEDS: DEXAMETHASONE 4 MG/1 ML VIAL IV SCH (09:05)
[2020-04-22] MEDS: LOPERAMIDE 2 MG CAPSULE PO PRN ×2 (09:05→16:17)
[2020-04-22] MEDS: CALCIUM (CARBONATE)/VITAMIN D 600 MG-400 UNIT TABLET PO SCH (11:45)
[2020-04-22] MEDS: DOCUSATE SODIUM 100 MG CAPSULE PO SCH ×2 (11:45→20:25)
[2020-04-22] MEDS: FUROSEMIDE 40 MG TABLET PO SCH (11:46)
[2020-04-22] MEDS: POTASSIUM CHLORIDE 20 MEQ TABLET PO SCH (11:46)
[2020-04-22] MEDS: LINACLOTIDE 145 MCG CAPSULE PO SCH (11:46)
[2020-04-22] MEDS: DULoxetine 30 MG CAPSULE PO SCH ×2 (11:47→20:25)
[2020-04-22] MEDS: LABETALOL 200 MG TABLET PO SCH ×2 (11:47→20:28)
[2020-04-22] MEDS: FAMOTIDINE 20 MG TABLET PO SCH ×2 (11:47→20:28)
[2020-04-22] MEDS: CLOPIDOGREL 75 MG TABLET PO SCH (11:47)
[2020-04-22] MEDS: LOSARTAN 50 MG TABLET PO SCH (11:47)
[2020-04-22] MEDS: CETIRIZINE 10 MG TABLET PO SCH (11:47)
[2020-04-22] MEDS: AZITHROMYCIN INJ 500 MG in SODIUM CHLORIDE 0.9% 250 ML IV SCH (15:49)
[2020-04-22] MEDS: ENOXAPARIN 40 MG/0.4 ML SYRINGE SUBCUT SCH (15:49)
[2020-04-22] MEDS: MORPHINE ER 15 MG TABLET PO PRN (16:17)
[2020-04-22] MEDS: POTASSIUM CHLORIDE RIDER 10 MEQ in PREMIX 1 EACH IV PRN ×3 (17:09→20:29)
[2020-04-22] MEDS: ASPIRIN EC 81 MG TABLET PO SCH (20:27)
[2020-04-22] MEDS: ATORVASTATIN 20 MG TABLET PO SCH (20:28)
[2020-04-22] MEDS: rOPINIRole 1 MG TABLET PO SCH (20:28)
[2020-04-23] MEDS: ONDANSETRON 4 MG/2 ML VIAL IV PRN (00:38)
[2020-04-23] MEDS: SODIUM CHLORIDE 0.9% 1,000 ML IV SCH (07:23)
[2020-04-23] MEDS: DULoxetine 30 MG CAPSULE PO SCH ×2 (10:35→21:01)
[2020-04-23] MEDS: LINACLOTIDE 145 MCG CAPSULE PO SCH (10:35)
[2020-04-23] MEDS: LOSARTAN 50 MG TABLET PO SCH (10:35)
[2020-04-23] MEDS: CALCIUM (CARBONATE)/VITAMIN D 600 MG-400 UNIT TABLET PO SCH (10:35)
[2020-04-23] MEDS: CLOPIDOGREL 75 MG TABLET PO SCH (10:35)
[2020-04-23] MEDS: DEXAMETHASONE 4 MG/1 ML VIAL IV SCH (10:35)
[2020-04-23] MEDS: POTASSIUM CHLORIDE 20 MEQ TABLET PO SCH (10:35)
[2020-04-23] MEDS: LABETALOL 200 MG TABLET PO SCH ×2 (10:35→21:02)
[2020-04-23] MEDS: CETIRIZINE 10 MG TABLET PO SCH (10:35)
[2020-04-23] MEDS: FAMOTIDINE 20 MG TABLET PO SCH ×2 (10:35→21:02)
[2020-04-23] MEDS: LOPERAMIDE 2 MG CAPSULE PO PRN ×2 (10:35→16:16)
[2020-04-23] MEDS: oxyCODONE/ACETAMINOPHEN 5-325 MG TABLET PO PRN ×2 (10:35→23:04)
[2020-04-23] MEDS: DOCUSATE SODIUM 100 MG CAPSULE PO SCH ×2 (10:35→21:01)
[2020-04-23] MEDS: LEVOTHYROXINE 25 MCG TABLET PO SCH (10:35)
[2020-04-23] MEDS: FUROSEMIDE 40 MG TABLET PO SCH (10:35)
[2020-04-23] MEDS: POTASSIUM CHLORIDE RIDER 10 MEQ in PREMIX 1 EACH IV PRN ×5 (11:00→18:24)
[2020-04-23] MEDS ORDERED: hydrALAZINE 20 MG/1 ML VIAL IV PRN (13:36)
[2020-04-23] MEDS: AZITHROMYCIN INJ 500 MG in SODIUM CHLORIDE 0.9% 250 ML IV SCH (14:34)
[2020-04-23] MEDS: ENOXAPARIN 40 MG/0.4 ML SYRINGE SUBCUT SCH (14:34)
[2020-04-23] MEDS: ATORVASTATIN 20 MG TABLET PO SCH (21:01)
[2020-04-23] MEDS: rOPINIRole 1 MG TABLET PO SCH (21:02)
[2020-04-23] MEDS: ASPIRIN EC 81 MG TABLET PO SCH (21:04)
[2020-04-24] MEDS: DOCUSATE SODIUM 100 MG CAPSULE PO SCH ×3 (01:10→21:40)
[2020-04-24] MEDS: SODIUM CHLORIDE 0.9% 1,000 ML IV SCH (03:44)
[2020-04-24] MEDS ORDERED: POTASSIUM CHLORIDE 20 MEQ TABLET PO ONE (06:16)
[2020-04-24] MEDS ORDERED: MAGNESIUM SULF RIDER 4 GM in PREMIX 1 EACH IV PRN (06:32)
[2020-04-24] MEDS: MAGNESIUM SULF RIDER 2 GM in PREMIX 1 EACH IV PRN ×2 (08:48→11:25)
[2020-04-24] MEDS: LEVOTHYROXINE 25 MCG TABLET PO SCH (08:48)
[2020-04-24] MEDS: POTASSIUM CHLORIDE 20 MEQ TABLET PO SCH (08:48)
[2020-04-24] MEDS: DEXAMETHASONE 4 MG/1 ML VIAL IV SCH (09:50)
[2020-04-24] MEDS: ONDANSETRON 4 MG/2 ML VIAL IV PRN (09:53)
[2020-04-24] MEDS: CLOPIDOGREL 75 MG TABLET PO SCH (11:25)
[2020-04-24] MEDS: LABETALOL 200 MG TABLET PO SCH ×2 (11:25→21:41)
[2020-04-24] MEDS: FAMOTIDINE 20 MG TABLET PO SCH ×2 (11:25→21:44)
[2020-04-24] MEDS: DULoxetine 30 MG CAPSULE PO SCH ×2 (11:25→21:40)
[2020-04-24] MEDS: LOSARTAN 50 MG TABLET PO SCH (11:38)
[2020-04-24] MEDS: CALCIUM (CARBONATE)/VITAMIN D 600 MG-400 UNIT TABLET PO SCH (11:38)
[2020-04-24] MEDS: CETIRIZINE 10 MG TABLET PO SCH (11:39)
[2020-04-24] MEDS: LINACLOTIDE 145 MCG CAPSULE PO SCH (11:39)
[2020-04-24] MEDS: FUROSEMIDE 40 MG TABLET PO SCH (11:39)
[2020-04-24] MEDS: AZITHROMYCIN INJ 500 MG in SODIUM CHLORIDE 0.9% 250 ML IV SCH (14:27)
[2020-04-24] MEDS: ENOXAPARIN 40 MG/0.4 ML SYRINGE SUBCUT SCH (14:27)
[2020-04-24 15:04] LABS: Calcium 7.7 MG/DL (8.5-10.1); Osmolality,Calculated 291.1 MOS/KG (273-304)
[2020-04-24] MEDS: oxyCODONE/ACETAMINOPHEN 5-325 MG TABLET PO PRN ×2 (16:20→21:45)
[2020-04-24] MEDS: ASPIRIN EC 81 MG TABLET PO SCH (21:40)
[2020-04-24] MEDS: rOPINIRole 1 MG TABLET PO SCH (21:41)
[2020-04-24] MEDS: ATORVASTATIN 20 MG TABLET PO SCH (21:41)
[2020-04-25] MEDS: MORPHINE ER 15 MG TABLET PO PRN ×2 (01:26→21:08)
[2020-04-25] MEDS: SODIUM CHLORIDE 0.9% 1,000 ML IV SCH ×2 (02:56→09:17)
[2020-04-25 04:12] LABS: Basophils % 0.2 % (0.0-0.8); Hematocrit 38.6 VOL% (35.7-47.0); Hemoglobin 12.4 GM/DL (12.0-16.0); Immature Granulocytes % 2.9 %; Immature Granulocytes Absolute 0.35 #; Lymphocytes # 1.2 10*3/uL (1.4-4.0); Lymphocytes % 9.9 % (21.3-54.2); Mean Corpuscular HGB Conc 32.1 GM/DL (32-36); Mean Corpuscular Volume 88.3 FL (87-102); Mean Platelet Volume 10.1 FL (9.6-12.0); Monocytes % 6.9 % (1.7-12.7); Neutrophils % 80.1 % (38.7-73.9); Platelet Count 274 T/CUMM (130-400); Red Blood Count 4.37 MC/CUMM (3.8-5.5); Red Cell Distribution Width 15.2 % (9.3-17.3); White Blood Count 12.1 T/CUMM (4-12)
[2020-04-25] MEDS: ONDANSETRON 4 MG/2 ML VIAL IV PRN ×2 (05:27→23:59)
[2020-04-25] MEDS: LEVOTHYROXINE 25 MCG TABLET PO SCH (09:17)
[2020-04-25] MEDS: CLOPIDOGREL 75 MG TABLET PO SCH (09:17)
[2020-04-25] MEDS: LOSARTAN 50 MG TABLET PO SCH (09:17)
[2020-04-25] MEDS: DOCUSATE SODIUM 100 MG CAPSULE PO SCH ×3 (09:18→20:58)
[2020-04-25] MEDS: predniSONE 20 MG TABLET PO SCH (09:18)
[2020-04-25] MEDS: FAMOTIDINE 20 MG TABLET PO SCH ×2 (09:18→20:57)
[2020-04-25] MEDS: POTASSIUM CHLORIDE 20 MEQ TABLET PO SCH (09:18)
[2020-04-25] MEDS: FUROSEMIDE 40 MG TABLET PO SCH (09:18)
[2020-04-25] MEDS: oxyCODONE/ACETAMINOPHEN 5-325 MG TABLET PO PRN (09:18)
[2020-04-25] MEDS: LINACLOTIDE 145 MCG CAPSULE PO SCH ×2 (09:18→09:29)
[2020-04-25] MEDS: CETIRIZINE 10 MG TABLET PO SCH (09:19)
[2020-04-25] MEDS: DULoxetine 30 MG CAPSULE PO SCH ×2 (09:19→20:57)
[2020-04-25] MEDS: CALCIUM (CARBONATE)/VITAMIN D 600 MG-400 UNIT TABLET PO SCH (09:19)
[2020-04-25] MEDS: LABETALOL 200 MG TABLET PO SCH ×2 (09:19→20:57)
[2020-04-25 12:48] LABS: Osmolality,Calculated 277.5 MOS/KG (273-304)
[2020-04-25] MEDS: ENOXAPARIN 40 MG/0.4 ML SYRINGE SUBCUT SCH (13:47)
[2020-04-25] MEDS: NYSTATIN 500,000 UNIT/5 ML UDCUP SWISH/SWAL SCH ×2 (17:22→20:56)
[2020-04-25] MEDS: ASPIRIN EC 81 MG TABLET PO SCH (18:13)
[2020-04-25] MEDS: rOPINIRole 1 MG TABLET PO SCH (20:56)
[2020-04-25] MEDS: ATORVASTATIN 20 MG TABLET PO SCH (20:57)
[2020-04-25] MEDS: LOPERAMIDE 2 MG CAPSULE PO PRN (23:59)
[2020-04-26] MEDS: LEVOTHYROXINE 25 MCG TABLET PO SCH (06:01)
[2020-04-26] MEDS: DOCUSATE SODIUM 100 MG CAPSULE PO SCH ×2 (09:24→22:05)
[2020-04-26] MEDS: CETIRIZINE 10 MG TABLET PO SCH (09:24)
[2020-04-26] MEDS: DULoxetine 30 MG CAPSULE PO SCH ×2 (09:24→22:05)
[2020-04-26] MEDS: predniSONE 20 MG TABLET PO SCH (09:24)
[2020-04-26] MEDS: FAMOTIDINE 20 MG TABLET PO SCH ×2 (09:24→22:05)
[2020-04-26] MEDS: LOSARTAN 50 MG TABLET PO SCH (09:25)
[2020-04-26] MEDS: CLOPIDOGREL 75 MG TABLET PO SCH (09:25)
[2020-04-26] MEDS: FUROSEMIDE 40 MG TABLET PO SCH (09:25)
[2020-04-26] MEDS: LABETALOL 200 MG TABLET PO SCH ×2 (09:25→22:06)
[2020-04-26] MEDS: POTASSIUM CHLORIDE 20 MEQ TABLET PO SCH (09:25)
[2020-04-26] MEDS: CALCIUM (CARBONATE)/VITAMIN D 600 MG-400 UNIT TABLET PO SCH (09:25)
[2020-04-26] MEDS: NYSTATIN 500,000 UNIT/5 ML UDCUP SWISH/SWAL SCH ×4 (09:26→22:05)
[2020-04-26] MEDS: LOPERAMIDE 2 MG CAPSULE PO PRN (09:30)
[2020-04-26] MEDS: MORPHINE ER 15 MG TABLET PO PRN ×2 (12:04→22:06)
[2020-04-26] MEDS: ENOXAPARIN 40 MG/0.4 ML SYRINGE SUBCUT SCH (16:26)
[2020-04-26] MEDS: ASPIRIN EC 81 MG TABLET PO SCH (18:31)
[2020-04-26] MEDS: ATORVASTATIN 20 MG TABLET PO SCH (22:05)
[2020-04-26] MEDS: rOPINIRole 1 MG TABLET PO SCH (22:05)
[2020-04-27 03:44] LABS: Basophils % 0.2 % (0.0-0.8); Eosinophils % 0.1 % (0.00-10.9); Hematocrit 34.5 VOL% (35.7-47.0); Hemoglobin 11.1 GM/DL (12.0-16.0); Immature Granulocytes % 2.5 %; Immature Granulocytes Absolute 0.28 #; Lymphocytes # 1.9 10*3/uL (1.4-4.0); Lymphocytes % 17.1 % (21.3-54.2); Mean Corpuscular HGB Conc 32.2 GM/DL (32-36); Mean Corpuscular Volume 89.6 FL (87-102); Monocytes % 8.6 % (1.7-12.7); Neutrophils % 71.5 % (38.7-73.9); Platelet Count 262 T/CUMM (130-400); Red Blood Count 3.85 MC/CUMM (3.8-5.5); Red Cell Distribution Width 15.5 % (9.3-17.3)
[2020-04-27 04:08] LABS: Calcium 7.7 MG/DL (8.5-10.1); Osmolality,Calculated 282.3 MOS/KG (273-304)
[2020-04-27] MEDS: LEVOTHYROXINE 25 MCG TABLET PO SCH (06:20)
[2020-04-27] MEDS: LOSARTAN 50 MG TABLET PO SCH (08:51)
[2020-04-27] MEDS: DULoxetine 30 MG CAPSULE PO SCH (08:51)
[2020-04-27] MEDS: POTASSIUM CHLORIDE 20 MEQ TABLET PO SCH (08:51)
[2020-04-27] MEDS: LABETALOL 200 MG TABLET PO SCH (08:51)
[2020-04-27] MEDS: CALCIUM (CARBONATE)/VITAMIN D 600 MG-400 UNIT TABLET PO SCH (08:52)
[2020-04-27] MEDS: predniSONE 20 MG TABLET PO SCH (08:52)
[2020-04-27] MEDS: FUROSEMIDE 40 MG TABLET PO SCH (08:52)
[2020-04-27] MEDS: CLOPIDOGREL 75 MG TABLET PO SCH (08:52)
[2020-04-27] MEDS: NYSTATIN 500,000 UNIT/5 ML UDCUP SWISH/SWAL SCH ×2 (08:52→14:02)
[2020-04-27] MEDS: CETIRIZINE 10 MG TABLET PO SCH (08:52)
[2020-04-27] MEDS: FAMOTIDINE 20 MG TABLET PO SCH (08:53)
[2020-04-27] MEDS: DOCUSATE SODIUM 100 MG CAPSULE PO SCH (08:53)
[2020-04-27 11:53] VITALS: BP 109/45
[2020-04-27] MEDS: ENOXAPARIN 40 MG/0.4 ML SYRINGE SUBCUT SCH (14:02)
== END 2020-04-27 15:35 | disposition hospice, home (50) | DRG 177 ==
LOC: EDUNIT# → EDBD → N.ED 10:31 → N.EDINP 12:48 → N.2E 13:46
PROVIDERS: ADMIT Internal Medicine; ATTEND Internal Medicine

== ENCOUNTER 2020-11-18 19:41 | Inpatient (IN) ==
[2020-11-18] MEDS ORDERED: SODIUM CHLORIDE 0.9% 1,000 ML IV STA (20:00)
[2020-11-18 20:27] LABS: Basophils % 0.1 % (0.0-0.8); Eosinophils % 0.2 % (0.00-10.9); Hematocrit 34.2 VOL% (35.7-47.0); Hemoglobin 11.1 GM/DL (12.0-16.0); Immature Granulocytes % 0.5 %; Immature Granulocytes Absolute 0.08 #; Lymphocytes # 0.8 10*3/uL (1.4-4.0); Lymphocytes % 4.6 % (21.3-54.2); Mean Corpuscular HGB Conc 32.5 GM/DL (32-36); Mean Corpuscular Volume 94.2 FL (87-102); Monocytes % 6.5 % (1.7-12.7); Neutrophils % 88.1 % (38.7-73.9); Platelet Count 229 T/CUMM (130-400); Red Blood Count 3.63 MC/CUMM (3.8-5.5); Red Cell Distribution Width 12.7 % (9.3-17.3); White Blood Count 16.5 T/CUMM (4-12)
[2020-11-18 20:36] LABS: PT Patient Result 11.4 SECS (10.5-12.0)
[2020-11-18 20:48] LABS: Albumin 3.8 G/DL (3.4-5.0); Bilirubin,Total 0.4 MG/DL (0.2-1.0); Calcium 8.4 MG/DL (8.5-10.1); Osmolality,Calculated 287.4 MOS/KG (273-304); Potassium 4.2 MMOL/L (3.5-5.1); Total Protein 6.5 G/DL (6.4-8.2)
[2020-11-18 21:01] LABS: Bacteria,Urine Occasional /HPF (Few); Bilirubin,Urine Negative (Negative); Blood, Urine Negative (Negative); Glucose,Urine (UA) Negative (Negative); Ketones,Urine Negative (Negative); Nitrite,Urine Negative (Negative); Protein,Urine Negative; RBC,Urine 3 /HPF (0-4); Squamous Epithelial Cell,Urine Occasional /HPF (0-10); Urine Appearance CLEAR (Clear); Urine Color Yellow (Yellow); Urine Specific Gravity 1.012 (1.001-1.035); Urine Urobilinogen < 2.0 EU/DL (0.2-1.0)
[2020-11-18 21:05] LABS: Band Neutrophils 4 % (0-10); Lymphocytes 9 % (20-55); Macrocytosis Slight; Platelet Estimate Normal; Segmented Neutrophils 79 % (50-85); Total Cells Counted 100
[2020-11-18] MEDS ORDERED: ACETAMINOPHEN 325 MG TABLET PO PRN (21:50)
[2020-11-19] MEDS: DEXTROSE 5% NACL 0.45% 1,000 ML IV SCH ×2 (01:02→19:28)
[2020-11-19 06:30] LABS: Basophils % 0.2 % (0.0-0.8); Eosinophils % 0.1 % (0.00-10.9); Hematocrit 37.1 VOL% (35.7-47.0); Immature Granulocytes % 0.4 %; Immature Granulocytes Absolute 0.07 #; Lymphocytes # 2.5 10*3/uL (1.4-4.0); Lymphocytes % 15.1 % (21.3-54.2); Mean Corpuscular HGB Conc 32.3 GM/DL (32-36); Mean Corpuscular Volume 94.9 FL (87-102); Mean Platelet Volume 11.1 FL (9.6-12.0); Neutrophils % 74.2 % (38.7-73.9); Platelet Count 205 T/CUMM (130-400); Red Blood Count 3.91 MC/CUMM (3.8-5.5); Red Cell Distribution Width 13.1 % (9.3-17.3); White Blood Count 16.8 T/CUMM (4-12)
[2020-11-19 07:41] LABS: Albumin 3.2 G/DL (3.4-5.0); Bilirubin,Total 0.6 MG/DL (0.2-1.0); Calcium 8.3 MG/DL (8.5-10.1); Potassium 3.7 MMOL/L (3.5-5.1); Total Protein 6.4 G/DL (6.4-8.2)
[2020-11-19] MEDS: PANTOPRAZOLE 40 MG VIAL IV SCH (09:19)
[2020-11-19] MEDS ORDERED: ZALEPLON 5 MG CAPSULE PO PRN (11:25)
[2020-11-19] MEDS ORDERED: NITROGLYCERIN SL 0.4 MG TABLET SL PRN (11:30)
[2020-11-19] MEDS ORDERED: BENZONATATE 100 MG CAPSULE PO PRN (13:07)
[2020-11-19] MEDS ORDERED: LEVOFLOXACIN INJ 500 MG/100 ML PREMIX IV ONE (13:30)
[2020-11-19] MEDS: ALBUTEROL/IPRATROPIUM 3 ML NEB RESP TX SCH (19:16)
[2020-11-19] MEDS: ONDANSETRON 4 MG/2 ML VIAL IV PRN (19:28)
[2020-11-19] MEDS: ATORVASTATIN 20 MG TABLET PO SCH (20:18)
[2020-11-19] MEDS: rOPINIRole 1 MG TABLET PO SCH (20:18)
[2020-11-19] MEDS: ASPIRIN EC 81 MG TABLET PO SCH (20:18)
[2020-11-19] MEDS: oxyCODONE/ACETAMINOPHEN 5-325 MG TABLET PO PRN (22:58)
[2020-11-20] MEDS: ALBUTEROL/IPRATROPIUM 3 ML NEB RESP TX SCH ×4 (00:06→20:14)
[2020-11-20] MEDS: DEXTROSE 5% NACL 0.45% 1,000 ML IV SCH (05:28)
[2020-11-20] MEDS: LEVOTHYROXINE 25 MCG TABLET PO SCH (06:07)
[2020-11-20 06:56] LABS: Basophils % 0.1 % (0.0-0.8); Eosinophils # 0.1 10*3/uL (0.0-0.87); Eosinophils % 0.9 % (0.00-10.9); Hematocrit 30.9 VOL% (35.7-47.0); Hemoglobin 10.1 GM/DL (12.0-16.0); Immature Granulocytes % 0.6 %; Immature Granulocytes Absolute 0.05 #; Lymphocytes % 11.8 % (21.3-54.2); Mean Corpuscular HGB Conc 32.7 GM/DL (32-36); Mean Corpuscular Volume 94.2 FL (87-102); Mean Platelet Volume 10.6 FL (9.6-12.0); Monocytes % 10.5 % (1.7-12.7); Neutrophils % 76.1 % (38.7-73.9); Platelet Count 192 T/CUMM (130-400); Red Blood Count 3.28 MC/CUMM (3.8-5.5); White Blood Count 8.6 T/CUMM (4-12)
[2020-11-20 07:29] LABS: Bilirubin,Total 0.9 MG/DL (0.2-1.0); Calcium 8.4 MG/DL (8.5-10.1); Potassium 3.2 MMOL/L (3.5-5.1); Thyroid Stimulating Hormone 1.01 uIU/ml (0.358-3.74); Total Protein 6.2 G/DL (6.4-8.2)
[2020-11-20] MEDS: PANTOPRAZOLE 40 MG VIAL IV SCH (08:17)
[2020-11-20] MEDS: CLOPIDOGREL 75 MG TABLET PO SCH (10:25)
[2020-11-20] MEDS: oxyCODONE/ACETAMINOPHEN 5-325 MG TABLET PO PRN ×2 (10:28→22:45)
[2020-11-20] MEDS: ONDANSETRON 4 MG/2 ML VIAL IV PRN ×2 (10:30→22:41)
[2020-11-20] MEDS: CALCIUM (CARBONATE)/VITAMIN D 600 MG-400 UNIT TABLET PO SCH (10:44)
[2020-11-20] MEDS: LOSARTAN 50 MG TABLET PO SCH (10:44)
[2020-11-20] MEDS: LINACLOTIDE 145 MCG CAPSULE PO SCH (10:45)
[2020-11-20] MEDS: DULoxetine 30 MG CAPSULE PO SCH (10:45)
[2020-11-20] MEDS: FUROSEMIDE 40 MG TABLET PO SCH (10:45)
[2020-11-20] MEDS ORDERED: POTASSIUM CHLORIDE INJ 20 MEQ in DEXTROSE 5% NACL 0.45% 1,000 ML IV SCH (12:00)
[2020-11-20] MEDS: LEVOFLOXACIN INJ 250 MG/50 ML PREMIX IV SCH (12:31)
[2020-11-20] MEDS: DEXT 5% NACL 0.45% KCL 20 MEQ 20 MEQ/1,000 ML BAG IV SCH (14:43)
[2020-11-20] MEDS: ASPIRIN EC 81 MG TABLET PO SCH (20:17)
[2020-11-20] MEDS: rOPINIRole 1 MG TABLET PO SCH (20:24)
[2020-11-20] MEDS: ATORVASTATIN 20 MG TABLET PO SCH (20:24)
[2020-11-21] MEDS: ALBUTEROL/IPRATROPIUM 3 ML NEB RESP TX SCH ×4 (00:16→19:48)
[2020-11-21] MEDS: DEXT 5% NACL 0.45% KCL 20 MEQ 20 MEQ/1,000 ML BAG IV SCH ×3 (00:32→21:00)
[2020-11-21] MEDS: MORPHINE ER 15 MG TABLET PO PRN (02:19)
[2020-11-21 06:02] LABS: Basophils % 0.3 % (0.0-0.8); Eosinophils # 0.2 10*3/uL (0.0-0.87); Eosinophils % 2.4 % (0.00-10.9); Hematocrit 32.3 VOL% (35.7-47.0); Hemoglobin 9.8 GM/DL (12.0-16.0); Immature Granulocytes % 0.4 %; Immature Granulocytes Absolute 0.03 #; Lymphocytes # 1.5 10*3/uL (1.4-4.0); Lymphocytes % 18.5 % (21.3-54.2); Mean Corpuscular HGB Conc 30.3 GM/DL (32-36); Mean Corpuscular Volume 98.8 FL (87-102); Mean Platelet Volume 10.1 FL (9.6-12.0); Neutrophils % 67.4 % (38.7-73.9); Platelet Count 202 T/CUMM (130-400); Red Blood Count 3.27 MC/CUMM (3.8-5.5); Red Cell Distribution Width 12.9 % (9.3-17.3); White Blood Count 7.9 T/CUMM (4-12)
[2020-11-21] MEDS: LEVOTHYROXINE 25 MCG TABLET PO SCH (06:03)
[2020-11-21 06:34] LABS: Calcium 7.8 MG/DL (8.5-10.1); Osmolality,Calculated 289.1 MOS/KG (273-304); Potassium 3.7 MMOL/L (3.5-5.1)
[2020-11-21] MEDS: LINACLOTIDE 145 MCG CAPSULE PO SCH (08:31)
[2020-11-21] MEDS: PANTOPRAZOLE 40 MG VIAL IV SCH (08:31)
[2020-11-21] MEDS: DULoxetine 30 MG CAPSULE PO SCH (08:32)
[2020-11-21] MEDS: CLOPIDOGREL 75 MG TABLET PO SCH (08:33)
[2020-11-21] MEDS: LOSARTAN 50 MG TABLET PO SCH (08:33)
[2020-11-21] MEDS: FUROSEMIDE 40 MG TABLET PO SCH (08:34)
[2020-11-21] MEDS: oxyCODONE/ACETAMINOPHEN 5-325 MG TABLET PO PRN ×2 (08:34→14:49)
[2020-11-21] MEDS: CALCIUM (CARBONATE)/VITAMIN D 600 MG-400 UNIT TABLET PO SCH (08:34)
[2020-11-21] MEDS: LEVOFLOXACIN INJ 250 MG/50 ML PREMIX IV SCH (12:39)
[2020-11-21] MEDS: POTASSIUM CHLORIDE 20 MEQ TABLET PO SCH (12:39)
[2020-11-21] MEDS: FAMOTIDINE 20 MG TABLET PO SCH ×2 (12:39→20:55)
[2020-11-21] MEDS: ONDANSETRON 4 MG/2 ML VIAL IV PRN ×2 (14:49→20:56)
[2020-11-21] MEDS: ASPIRIN EC 81 MG TABLET PO SCH (19:00)
[2020-11-21] MEDS: ATORVASTATIN 20 MG TABLET PO SCH (20:55)
[2020-11-21] MEDS: LABETALOL 100 MG TABLET PO SCH (20:55)
[2020-11-21] MEDS: ENOXAPARIN 40 MG/0.4 ML SYRINGE SUBCUT SCH (20:55)
[2020-11-21] MEDS: rOPINIRole 1 MG TABLET PO SCH (20:56)
[2020-11-22] MEDS: ALBUTEROL/IPRATROPIUM 3 ML NEB RESP TX SCH ×4 (00:18→23:09)
[2020-11-22] MEDS: oxyCODONE/ACETAMINOPHEN 5-325 MG TABLET PO PRN ×3 (05:19→22:45)
[2020-11-22 05:31] LABS: Basophils % 0.5 % (0.0-0.8); Eosinophils # 0.4 10*3/uL (0.0-0.87); Eosinophils % 6.6 % (0.00-10.9); Hematocrit 32.5 VOL% (35.7-47.0); Hemoglobin 10.5 GM/DL (12.0-16.0); Immature Granulocytes % 0.5 %; Immature Granulocytes Absolute 0.03 #; Lymphocytes # 1.5 10*3/uL (1.4-4.0); Lymphocytes % 23.6 % (21.3-54.2); Mean Corpuscular HGB Conc 32.3 GM/DL (32-36); Mean Corpuscular Volume 94.5 FL (87-102); Mean Platelet Volume 10.2 FL (9.6-12.0); Monocytes % 11.5 % (1.7-12.7); Neutrophils % 57.3 % (38.7-73.9); Platelet Count 233 T/CUMM (130-400); Red Blood Count 3.44 MC/CUMM (3.8-5.5); Red Cell Distribution Width 12.8 % (9.3-17.3); White Blood Count 6.5 T/CUMM (4-12)
[2020-11-22 06:00] LABS: Calcium 7.9 MG/DL (8.5-10.1); Potassium 3.6 MMOL/L (3.5-5.1)
[2020-11-22] MEDS: LEVOTHYROXINE 25 MCG TABLET PO SCH (06:18)
[2020-11-22] MEDS: DEXT 5% NACL 0.45% KCL 20 MEQ 20 MEQ/1,000 ML BAG IV SCH ×2 (08:52→19:00)
[2020-11-22] MEDS: MORPHINE ER 15 MG TABLET PO PRN ×2 (08:53→16:34)
[2020-11-22] MEDS: LINACLOTIDE 145 MCG CAPSULE PO SCH (08:53)
[2020-11-22] MEDS: LEVOFLOXACIN INJ 250 MG/50 ML PREMIX IV SCH (08:53)
[2020-11-22] MEDS: LABETALOL 100 MG TABLET PO SCH ×2 (08:54→22:39)
[2020-11-22] MEDS: CETIRIZINE 10 MG TABLET PO SCH (08:54)
[2020-11-22] MEDS: DULoxetine 30 MG CAPSULE PO SCH (08:55)
[2020-11-22] MEDS: CALCIUM (CARBONATE)/VITAMIN D 600 MG-400 UNIT TABLET PO SCH (08:55)
[2020-11-22] MEDS: FUROSEMIDE 40 MG TABLET PO SCH (08:55)
[2020-11-22] MEDS: CLOPIDOGREL 75 MG TABLET PO SCH (08:55)
[2020-11-22] MEDS: FAMOTIDINE 20 MG TABLET PO SCH ×2 (08:56→22:39)
[2020-11-22] MEDS: POTASSIUM CHLORIDE 20 MEQ TABLET PO SCH (08:56)
[2020-11-22] MEDS: LOSARTAN 50 MG TABLET PO SCH (08:56)
[2020-11-22] MEDS: PANTOPRAZOLE 40 MG VIAL IV SCH (08:56)
[2020-11-22] MEDS: ASPIRIN EC 81 MG TABLET PO SCH (18:12)
[2020-11-22] MEDS: ATORVASTATIN 20 MG TABLET PO SCH (22:38)
[2020-11-22] MEDS: rOPINIRole 1 MG TABLET PO SCH (22:38)
[2020-11-22] MEDS: ENOXAPARIN 40 MG/0.4 ML SYRINGE SUBCUT SCH (22:39)
[2020-11-23] MEDS: ALBUTEROL/IPRATROPIUM 3 ML NEB RESP TX SCH ×4 (03:02→19:19)
[2020-11-23 05:16] LABS: Basophils % 0.5 % (0.0-0.8); Eosinophils # 0.4 10*3/uL (0.0-0.87); Eosinophils % 5.8 % (0.00-10.9); Hematocrit 31.7 VOL% (35.7-47.0); Hemoglobin 10.2 GM/DL (12.0-16.0); Immature Granulocytes % 0.3 %; Immature Granulocytes Absolute 0.02 #; Lymphocytes # 1.8 10*3/uL (1.4-4.0); Mean Corpuscular HGB Conc 32.2 GM/DL (32-36); Mean Corpuscular Volume 94.6 FL (87-102); Mean Platelet Volume 9.9 FL (9.6-12.0); Monocytes % 12.7 % (1.7-12.7); Neutrophils % 51.7 % (38.7-73.9); Platelet Count 235 T/CUMM (130-400); Red Blood Count 3.35 MC/CUMM (3.8-5.5); Red Cell Distribution Width 13.1 % (9.3-17.3); White Blood Count 6.2 T/CUMM (4-12)
[2020-11-23] MEDS: DEXT 5% NACL 0.45% KCL 20 MEQ 20 MEQ/1,000 ML BAG IV SCH (05:29)
[2020-11-23] MEDS: LEVOTHYROXINE 25 MCG TABLET PO SCH ×2 (05:29→06:34)
[2020-11-23] MEDS: PANTOPRAZOLE 40 MG TABLET PO SCH (05:31)
[2020-11-23] MEDS: oxyCODONE/ACETAMINOPHEN 5-325 MG TABLET PO PRN ×3 (05:36→21:12)
[2020-11-23 05:55] LABS: Calcium 8.4 MG/DL (8.5-10.1); Osmolality,Calculated 280.3 MOS/KG (273-304); Potassium 4.2 MMOL/L (3.5-5.1)
[2020-11-23] MEDS: LINACLOTIDE 145 MCG CAPSULE PO SCH (10:06)
[2020-11-23] MEDS: POTASSIUM CHLORIDE 20 MEQ TABLET PO SCH (10:06)
[2020-11-23] MEDS: LOSARTAN 50 MG TABLET PO SCH (10:07)
[2020-11-23] MEDS: CLOPIDOGREL 75 MG TABLET PO SCH (10:08)
[2020-11-23] MEDS: CETIRIZINE 10 MG TABLET PO SCH (10:08)
[2020-11-23] MEDS: FUROSEMIDE 40 MG TABLET PO SCH (10:09)
[2020-11-23] MEDS: FAMOTIDINE 20 MG TABLET PO SCH ×2 (10:09→20:35)
[2020-11-23] MEDS: DULoxetine 30 MG CAPSULE PO SCH (10:09)
[2020-11-23] MEDS: MORPHINE ER 15 MG TABLET PO PRN (10:09)
[2020-11-23] MEDS: LABETALOL 100 MG TABLET PO SCH ×2 (10:09→20:35)
[2020-11-23] MEDS: CALCIUM (CARBONATE)/VITAMIN D 600 MG-400 UNIT TABLET PO SCH (11:36)
[2020-11-23] MEDS: LEVOFLOXACIN 500 MG TABLET PO SCH (15:05)
[2020-11-23] MEDS: HYDROmorphone 2 MG/1 ML VIAL IV PRN (18:14)
[2020-11-23] MEDS: ASPIRIN EC 81 MG TABLET PO SCH (19:30)
[2020-11-23] MEDS: ATORVASTATIN 20 MG TABLET PO SCH (20:34)
[2020-11-23] MEDS: ENOXAPARIN 40 MG/0.4 ML SYRINGE SUBCUT SCH (20:34)
[2020-11-23] MEDS: rOPINIRole 1 MG TABLET PO SCH (20:35)
[2020-11-24] MEDS: ALBUTEROL/IPRATROPIUM 3 ML NEB RESP TX SCH ×4 (00:21→20:20)
[2020-11-24] MEDS: PANTOPRAZOLE 40 MG TABLET PO SCH (06:38)
[2020-11-24] MEDS: DEXT 5% NACL 0.45% KCL 20 MEQ 20 MEQ/1,000 ML BAG IV SCH ×3 (08:53→20:32)
[2020-11-24] MEDS: LABETALOL 100 MG TABLET PO SCH ×2 (08:56→20:32)
[2020-11-24] MEDS: CLOPIDOGREL 75 MG TABLET PO SCH (08:56)
[2020-11-24] MEDS: LOSARTAN 50 MG TABLET PO SCH (08:57)
[2020-11-24] MEDS: CALCIUM (CARBONATE)/VITAMIN D 600 MG-400 UNIT TABLET PO SCH (08:57)
[2020-11-24] MEDS: POTASSIUM CHLORIDE 20 MEQ TABLET PO SCH ×2 (08:57→08:59)
[2020-11-24] MEDS: LINACLOTIDE 145 MCG CAPSULE PO SCH (08:57)
[2020-11-24] MEDS: DULoxetine 30 MG CAPSULE PO SCH (08:58)
[2020-11-24] MEDS: FAMOTIDINE 20 MG TABLET PO SCH ×2 (08:58→20:32)
[2020-11-24] MEDS: CETIRIZINE 10 MG TABLET PO SCH (08:58)
[2020-11-24] MEDS: FUROSEMIDE 40 MG TABLET PO SCH (08:58)
[2020-11-24] MEDS: LEVOFLOXACIN 500 MG TABLET PO SCH (08:59)
[2020-11-24] MEDS: LEVOTHYROXINE 25 MCG TABLET PO SCH (09:08)
[2020-11-24] MEDS: HYDROmorphone 2 MG/1 ML VIAL IV PRN ×2 (09:08→18:15)
[2020-11-24] MEDS: oxyCODONE/ACETAMINOPHEN 5-325 MG TABLET PO PRN ×2 (11:04→20:32)
[2020-11-24] MEDS: ONDANSETRON 4 MG/2 ML VIAL IV PRN (18:14)
[2020-11-24] MEDS: ASPIRIN EC 81 MG TABLET PO SCH (19:06)
[2020-11-24] MEDS: rOPINIRole 1 MG TABLET PO SCH (20:32)
[2020-11-24] MEDS: ATORVASTATIN 20 MG TABLET PO SCH (20:32)
[2020-11-24] MEDS: ENOXAPARIN 40 MG/0.4 ML SYRINGE SUBCUT SCH (20:33)
[2020-11-25] MEDS: ALBUTEROL/IPRATROPIUM 3 ML NEB RESP TX SCH ×2 (01:38→07:18)
[2020-11-25] MEDS: HYDROmorphone 2 MG/1 ML VIAL IV PRN ×2 (02:11→08:30)
[2020-11-25] MEDS: DEXT 5% NACL 0.45% KCL 20 MEQ 20 MEQ/1,000 ML BAG IV SCH ×2 (02:14→12:10)
[2020-11-25] MEDS: PANTOPRAZOLE 40 MG TABLET PO SCH (05:35)
[2020-11-25 06:34] LABS: Basophils % 0.6 % (0.0-0.8); Eosinophils # 0.3 10*3/uL (0.0-0.87); Eosinophils % 4.3 % (0.00-10.9); Hematocrit 33.8 VOL% (35.7-47.0); Hemoglobin 11.1 GM/DL (12.0-16.0); Immature Granulocytes % 0.3 %; Immature Granulocytes Absolute 0.02 #; Lymphocytes # 2.1 10*3/uL (1.4-4.0); Lymphocytes % 30.9 % (21.3-54.2); Mean Corpuscular HGB Conc 32.8 GM/DL (32-36); Mean Corpuscular Volume 92.6 FL (87-102); Mean Platelet Volume 10.1 FL (9.6-12.0); Monocytes % 11.5 % (1.7-12.7); Neutrophils % 52.4 % (38.7-73.9); Platelet Count 251 T/CUMM (130-400); Red Blood Count 3.65 MC/CUMM (3.8-5.5); Red Cell Distribution Width 13.2 % (9.3-17.3); White Blood Count 6.7 T/CUMM (4-12)
[2020-11-25 07:00] LABS: Calcium 8.3 MG/DL (8.5-10.1); Osmolality,Calculated 285.1 MOS/KG (273-304)
[2020-11-25] MEDS: FUROSEMIDE 40 MG TABLET PO SCH (08:27)
[2020-11-25] MEDS: POTASSIUM CHLORIDE 20 MEQ TABLET PO SCH (08:27)
[2020-11-25] MEDS: LEVOFLOXACIN 500 MG TABLET PO SCH (08:27)
[2020-11-25] MEDS: LINACLOTIDE 145 MCG CAPSULE PO SCH (08:27)
[2020-11-25] MEDS: CALCIUM (CARBONATE)/VITAMIN D 600 MG-400 UNIT TABLET PO SCH (08:28)
[2020-11-25] MEDS: DULoxetine 30 MG CAPSULE PO SCH (08:28)
[2020-11-25] MEDS: LABETALOL 100 MG TABLET PO SCH (08:28)
[2020-11-25] MEDS: LEVOTHYROXINE 25 MCG TABLET PO SCH (08:29)
[2020-11-25] MEDS: CLOPIDOGREL 75 MG TABLET PO SCH (08:29)
[2020-11-25] MEDS: LOSARTAN 50 MG TABLET PO SCH (08:29)
[2020-11-25] MEDS: CETIRIZINE 10 MG TABLET PO SCH (08:29)
[2020-11-25] MEDS: FAMOTIDINE 20 MG TABLET PO SCH (08:30)
[2020-11-25] MEDS: oxyCODONE/ACETAMINOPHEN 5-325 MG TABLET PO PRN (11:54)
[2020-11-25 12:07] VITALS: BP 147/53
== END 2020-11-25 13:31 | disposition home health service (06) | DRG 194 ==
LOC: EDBD → EDUNIT# → N.EDINP 19:41 → N.ED 19:41 → N.EDINP 22:34 → N.5E 22:56
PROVIDERS: ADMIT Internal Medicine; ATTEND Internal Medicine